=== PATIENT | female | born 1985 | race Caucasian/White ===

== ENCOUNTER 2017-07-10 20:27 | Inpatient (IN) | payer MEDICAID, OTHER ==
[2017-07-10] MEDS: NORepinephrine 8MG/250 ML (PMX 250 ML IV (21:14)
[2017-07-10] MEDS: ACETAMINOPHEN 650MG/20.3ML CUP GTB (21:14)
[2017-07-10] MEDS: PIPER-TAZO 3.375 GM IV (PMX) 50 ML IVPB (21:18)
[2017-07-10] MEDS: VANCOMYCIN 1 GM (PMX) 250 ML IVPB (21:18)
[2017-07-10 21:22] LABS: WHITE BLOOD COUNT 3.9 10^3/ul (4.8-10.8)
[2017-07-10 21:22] LABS: ABNORMAL IP MESSAGE 1; HEMATOCRIT 26.4 % (37.0-47.0); HEMOGLOBIN 8.7 g/dl (12.0-16.0); MEAN CORPUSCULAR HEMOGLOBIN 31.2 pg (29.0-33.0); MEAN CORPUSCULAR VOLUME 94.6 fl (82.0-101.0); MEAN PLATELET VOLUME 10.4 fl (7.4-10.4); PLATELET COUNT 304 10^3/UL (140-415); RED BLOOD COUNT 2.79 10^6/ul (4.20-5.40); RED CELL DISTRIBUTION WIDTH 15.6 % (11.5-14.5)
[2017-07-10 21:25] LABS: AADO2 Arterial 256.7 mmHg (7.0-24.0); Allen Test ACCEPTAB; Arterial Base Excess 0.4 mmol/L (-3.0-3); Arterial Blood Gas Oxygen Sat 92.4 mmHG (95.0-98.0); Arterial COHb 0.3 % (0.0-3.0); Arterial Fraction of Oxyhgb 91.8 % (93.0-99.0); Arterial HCO3 23.7 mmol/L (22.0-26.0); Arterial MetHb 0.4 % (0.0-1.5); Arterial Total Hemglobin 9.8 g/dl (12.0-18.0); Arterial pCO2 33.1 mmhg (35-45); Blood Gas Low PEEP Setting 0 cmH2O; MODE VENT - AC; Site Right Radial
[2017-07-10 21:28] LABS: ADD MAN DIFF? YES; POSITIVE DIFF @See below
[2017-07-10 21:40] LABS: ALANINE AMINOTRANSFERASE 86 IU/L (13-69); ALBUMIN 2.9 g/dl (3.3-4.9); ALBUMIN/GLOBULIN RATIO 1.03; ALKALINE PHOSPHATASE 190 IU/L (42-121); ANION GAP 13 (8-16); ASPARTATE AMINO TRANSFERASE 41 IU/L (15-46); BILIRUBIN,INDIRECT 0.1 mg/dl (0-1.1); BILIRUBIN,TOTAL 0.1 mg/dl (0.2-1.3); BLOOD UREA NITROGEN 11 mg/dl (7-20); CALCIUM 8.7 mg/dl (8.4-10.2); CARBON DIOXIDE 24 mmol/L (21-31); CHLORIDE 108 mmol/L (97-110); CREATININE 0.54 mg/dl (0.44-1.00); GLUCOSE 133 mg/dl (70-220); POTASSIUM 3.1 mmol/L (3.5-5.1); SODIUM 142 mmol/L (135-144); TOTAL PROTEIN 5.7 g/dl (6.1-8.1)
[2017-07-10 22:32] LABS: ANISOCYTOSIS 2+ (0-0); LYMPHOCYTES #M 1.3 10^3/ul (0.8-2.9); LYMPHOCYTES % (M) 35 % (15-51); MICROCYTOSIS 2+ (0-0); MONOCYTE #M 0.2 10^3/ul (0.3-0.9); MONOCYTES % (M) 6 % (0-11); PLATELET ESTIMATE NORMAL; POLYCHROMASIA 1+ (0-0); REACTIVE LYMPHOCYTES #M 0.1 10^3/ul (0.0-0.0); REACTIVE LYMPHOCYTES% (M) 3 % (0-0); SEGMENTED NEUTROPHILS (M) % 56 % (39-77); SMUDGE%M 12 % (0-0)
[2017-07-10] MEDS: SOD CHLORIDE 0.9% 1,000 ML IV (22:42)
[2017-07-10] MEDS: POTASSIUM CHLORIDE 20 MEQ POWDER FOR ORAL SOLN GTB (22:50)
[2017-07-11] MEDS: PIPER-TAZO 3.375 GM IV (PMX) 50 ML IVPB ×4 (02:40→18:06)
[2017-07-11] MEDS: ACETAMINOPHEN 650MG/20.3ML CUP GTB ×2 (02:40→17:05)
[2017-07-11] MEDS ORDERED: PENDING SANTYL ORDER FOR WOUND CARE XX (05:00)
[2017-07-11 05:42] LABS: ADD MAN DIFF? NO
[2017-07-11 06:13] LABS: ANION GAP 13 (8-16); BLOOD UREA NITROGEN 10 mg/dl (7-20); CALCIUM 8.9 mg/dl (8.4-10.2); CARBON DIOXIDE 20 mmol/L (21-31); CHLORIDE 114 mmol/L (97-110); CREATININE 0.36 mg/dl (0.44-1.00); GLUCOSE 138 mg/dl (70-220); POTASSIUM 4.1 mmol/L (3.5-5.1); SODIUM 143 mmol/L (135-144)
[2017-07-11 06:38] LABS: ABNORMAL IP MESSAGE 1; BASOPHILS % 0.4 % (0.0-2.0); EOSINOPHILS % 0.4 % (0.0-7.0); LYMPHOCYTES # 1.3 10^3/ul (0.8-2.9); LYMPHOCYTES % 11.7 % (15.0-51.0); MEAN CORPUSCULAR HGB CONC 33.3 g/dl (32.0-37.0); MEAN CORPUSCULAR VOLUME 93.1 fl (82.0-101.0); MEAN PLATELET VOLUME 11.3 fl (7.4-10.4); MONOCYTE # 0.4 10^3/ul (0.3-0.9); MONOCYTES % 3.4 % (0.0-11.0); NEUTROPHIL # 9.2 10^3/ul (1.6-7.5); NEUTROPHILS % 83.4 % (39.0-77.0); PLATELET COUNT 363 10^3/UL (140-415); RED BLOOD COUNT 2.16 10^6/ul (4.20-5.40)
[2017-07-11 06:38] LABS: WHITE BLOOD COUNT 11.1 10^3/ul (4.8-10.8)
[2017-07-11 06:41] LABS: PATH REVIEW? YES; POSITIVE DIFF @See below
[2017-07-11 06:54] LABS: HEMATOCRIT 26.4 % (37.0-47.0); HEMOGLOBIN 8.9 g/dl (12.0-16.0)
[2017-07-11] MEDS: SOD CHLORIDE 0.9% 1,000 ML IV ×2 (09:31→21:47)
[2017-07-11] MEDS: ENOXAPARIN 30 MG/0.3 ML SYG SC (12:09)
[2017-07-11] MEDS: DIGOXIN 500 MCG INJ IV (13:37)
[2017-07-11 14:37] LABS: Allen Test ACCEPTAB; Arterial Base Excess -1.5 mmol/L (-3.0-3); Arterial Blood Gas Oxygen Sat 98.3 mmHG (95.0-98.0); Arterial COHb 0.3 % (0.0-3.0); Arterial Fraction of Oxyhgb 97.7 % (93.0-99.0); Arterial HCO3 22.1 mmol/L (22.0-26.0); Arterial MetHb 0.3 % (0.0-1.5); Arterial Total Hemglobin 8.8 g/dl (12.0-18.0); Arterial pCO2 32.8 mmhg (35-45); MODE VENT - AC; Site Right Radial
[2017-07-11] MEDS: CASPOFUNGIN 70 MG in SOD CHLORIDE 0.9% 250 ML IVPB (16:46)
[2017-07-11] MEDS ORDERED: ONDANSETRON 4 MG INJ (18:21)
[2017-07-11] MEDS: morphine 2 MG INJ IV (18:30)
[2017-07-11] MEDS: ONDANSETRON 4 MG INJ IV (18:30)
[2017-07-11] MEDS: VANCOMYCIN 750 MG in DEXTROSE 5% 150 ML IVPB (20:38)
[2017-07-11] MEDS: ACETAMINOPHEN 650MG/20.3ML CUP NGT (20:38)
[2017-07-11] MEDS: FAMOTIDINE 20 MG TAB GTB (20:39)
[2017-07-11] MEDS: ATENOLOL 25 MG TAB PO (20:39)
[2017-07-11] MEDS ORDERED: ACETAMINOPHEN 650 MG SUPP PR (21:18)
[2017-07-11 21:26] LABS: LACTIC ACID 0.9 mmol/L (0.5-2.0)
[2017-07-11] MEDS: METOCLOPRAMIDE 10 MG INJ IV ×2 (21:47→22:00)
[2017-07-12] MEDS: ONDANSETRON 4 MG INJ IV (05:14)
[2017-07-12] MEDS: METOCLOPRAMIDE 10 MG INJ IV ×4 (05:14→23:56)
[2017-07-12] MEDS: PIPER-TAZO 3.375 GM IV (PMX) 50 ML IVPB ×5 (05:15→23:55)
[2017-07-12] MEDS: morphine 2 MG INJ IV ×3 (05:15→23:23)
[2017-07-12] MEDS: VANCOMYCIN 750 MG in DEXTROSE 5% 150 ML IVPB ×2 (05:48→18:35)
[2017-07-12] MEDS: ACETAMINOPHEN 325 MG SUPP PR (08:06)
[2017-07-12] MEDS: FAMOTIDINE 20 MG INJ IV (09:54)
[2017-07-12] MEDS: ENOXAPARIN 30 MG/0.3 ML SYG SC (09:56)
[2017-07-12 11:17] LABS: ADD MAN DIFF? NO
[2017-07-12 11:25] LABS: ABNORMAL IP MESSAGE 1; BASOPHILS % 0.1 % (0.0-2.0); EOSINOPHILS # 0.1 10^3/ul (0.0-0.5); EOSINOPHILS % 0.3 % (0.0-7.0); HEMATOCRIT 21.9 % (37.0-47.0); HEMOGLOBIN 7.3 g/dl (12.0-16.0); LYMPHOCYTES # 1.4 10^3/ul (0.8-2.9); LYMPHOCYTES % 8.9 % (15.0-51.0); MEAN CORPUSCULAR HEMOGLOBIN 31.7 pg (29.0-33.0); MEAN CORPUSCULAR HGB CONC 33.3 g/dl (32.0-37.0); MEAN CORPUSCULAR VOLUME 95.2 fl (82.0-101.0); MEAN PLATELET VOLUME 10.4 fl (7.4-10.4); MONOCYTE # 0.6 10^3/ul (0.3-0.9); MONOCYTES % 3.9 % (0.0-11.0); NEUTROPHIL # 13.7 10^3/ul (1.6-7.5); NEUTROPHILS % 85.5 % (39.0-77.0); PLATELET COUNT 291 10^3/UL (140-415); RED CELL DISTRIBUTION WIDTH 16.3 % (11.5-14.5)
[2017-07-12 11:25] LABS: WHITE BLOOD COUNT 16.1 10^3/ul (4.8-10.8)
[2017-07-12 11:30] LABS: POSITIVE DIFF @See below
[2017-07-12] MEDS: SOD CHLORIDE 0.9% 1,000 ML IV ×2 (12:00→18:35)
[2017-07-12 13:46] LABS: ADD UMIC YES; UR ASCORBIC ACID NEGATIVE (NEGATIVE); UR BACTERIA FEW /HPF (NONE SEEN); UR BILIRUBIN (Dip) NEGATIVE (NEGATIVE); UR BLOOD (Dip) NEGATIVE (NEGATIVE); UR CLARITY SLIGHTLY CLOUDY (CLEAR); UR COLOR YELLOW (YELLOW); UR GLUCOSE (Dip) NEGATIVE (NEGATIVE); UR KETONES (Dip) 1+ mg/dL (NEGATIVE); UR LEUKOCYTE ESTERASE (Dip) NEGATIVE Leu/ul (NEGATIVE); UR NITRITE (Dip) NEGATIVE (NEGATIVE); UR RBC 7 /HPF (0-5); UR SPECIFIC GRAVITY (Dip) 1.016 (1.003-1.030); UR TOTAL PROTEIN (Dip) 1+ mg/dl (NEGATIVE); UR UROBILINOGEN (Dip) NEGATIVE (NEGATIVE); UR WBC 3 /HPF (0-5)
[2017-07-12] MEDS: CASPOFUNGIN 50 MG in SOD CHLORIDE 0.9% 250 ML IVPB (16:31)
[2017-07-12] MEDS: ACETAMINOPHEN 650MG/20.3ML CUP NGT (16:36)
[2017-07-13] MEDS: SOD CHLORIDE 0.9% 1,000 ML IV ×3 (00:30→12:14)
[2017-07-13] MEDS: ACETAMINOPHEN 325 MG SUPP PR (05:05)
[2017-07-13] MEDS: METOCLOPRAMIDE 10 MG INJ IV ×4 (05:26→23:47)
[2017-07-13] MEDS: PIPER-TAZO 3.375 GM IV (PMX) 50 ML IVPB ×4 (05:26→23:47)
[2017-07-13] MEDS: VANCOMYCIN 750 MG in DEXTROSE 5% 150 ML IVPB ×2 (06:20→16:01)
[2017-07-13] MEDS: FAMOTIDINE 20 MG INJ IV (09:03)
[2017-07-13] MEDS: ENOXAPARIN 30 MG/0.3 ML SYG SC (09:12)
[2017-07-13 09:18] LABS: AADO2 Arterial 92.2 mmHg (7.0-24.0); Allen Test ACCEPTAB; Arterial Base Excess -1.1 mmol/L (-3.0-3); Arterial Blood Gas Oxygen Sat 98.8 mmHG (95.0-98.0); Arterial COHb 0.3 % (0.0-3.0); Arterial Fraction of Oxyhgb 98.1 % (93.0-99.0); Arterial HCO3 21.7 mmol/L (22.0-26.0); Arterial MetHb 0.4 % (0.0-1.5); Arterial Total Hemglobin 7.6 g/dl (12.0-18.0); Arterial pCO2 28.5 mmhg (35-45); Blood Gas Low PEEP Setting 0 cmH2O; MODE VENT - AC; Site Right Radial
[2017-07-13] MEDS: ONDANSETRON 4 MG INJ IV (13:46)
[2017-07-13 16:47] LABS: LACTIC ACID 1.1 mmol/L (0.5-2.0)
[2017-07-13] MEDS: CASPOFUNGIN 50 MG in SOD CHLORIDE 0.9% 250 ML IVPB (17:01)
[2017-07-13] MEDS: morphine 2 MG INJ IV (20:22)
[2017-07-13] MEDS: ATENOLOL 25 MG TAB PO (20:26)
[2017-07-13] MEDS: ACETAMINOPHEN 650MG/20.3ML CUP NGT (23:48)
[2017-07-14] MEDS: morphine 2 MG INJ IV ×2 (01:33→19:34)
[2017-07-14] MEDS: ACETAMINOPHEN 325 MG SUPP PR (02:16)
[2017-07-14] MEDS: SOD CHLORIDE 0.9% 1,000 ML IV ×3 (04:02→16:16)
[2017-07-14 05:23] LABS: WHITE BLOOD COUNT 13.3 10^3/ul (4.8-10.8)
[2017-07-14 05:23] LABS: HEMATOCRIT 21.7 % (37.0-47.0); HEMOGLOBIN 7.2 g/dl (12.0-16.0); MEAN CORPUSCULAR HEMOGLOBIN 30.8 pg (29.0-33.0); MEAN CORPUSCULAR HGB CONC 33.2 g/dl (32.0-37.0); MEAN CORPUSCULAR VOLUME 92.7 fl (82.0-101.0); MEAN PLATELET VOLUME 10.5 fl (7.4-10.4); PLATELET COUNT 293 10^3/UL (140-415); RED BLOOD COUNT 2.34 10^6/ul (4.20-5.40); RED CELL DISTRIBUTION WIDTH 15.2 % (11.5-14.5)
[2017-07-14 05:47] LABS: ANION GAP 15 (8-16); BLOOD UREA NITROGEN 3 mg/dl (7-20); CALCIUM 8.1 mg/dl (8.4-10.2); CARBON DIOXIDE 29 mmol/L (21-31); CHLORIDE 101 mmol/L (97-110); CREATININE 0.31 mg/dl (0.44-1.00); GLUCOSE 113 mg/dl (70-220); SODIUM 143 mmol/L (135-144)
[2017-07-14] MEDS: METOCLOPRAMIDE 10 MG INJ IV ×3 (05:50→17:05)
[2017-07-14] MEDS: PIPER-TAZO 3.375 GM IV (PMX) 50 ML IVPB ×3 (05:50→18:58)
[2017-07-14 06:01] LABS: POTASSIUM 1.9 mmol/L (3.5-5.1)
[2017-07-14] MEDS ORDERED: VANCOMYCIN 750 MG in DEXTROSE 5% 150 ML IVPB (06:30)
[2017-07-14] MEDS: VANCOMYCIN 750 MG in DEXTROSE 5% 150 ML IVPB ×3 (06:41→22:24)
[2017-07-14 06:49] LABS: ADD MAN DIFF? YES; POSITIVE DIFF @See below
[2017-07-14] MEDS: POTASSIUM CHLORIDE 50 ML IVPB ×4 (06:59→11:50)
[2017-07-14 08:35] LABS: ANION GAP 12 (8-16); BLOOD UREA NITROGEN 2 mg/dl (7-20); CALCIUM 7.8 mg/dl (8.4-10.2); CARBON DIOXIDE 29 mmol/L (21-31); CHLORIDE 101 mmol/L (97-110); CREATININE 0.35 mg/dl (0.44-1.00); GLUCOSE 112 mg/dl (70-220); MAGNESIUM 1.2 mg/dl (1.7-2.5); SODIUM 140 mmol/L (135-144)
[2017-07-14 08:37] LABS: POTASSIUM 1.8 mmol/L (3.5-5.1)
[2017-07-14] MEDS: FAMOTIDINE 20 MG INJ IV (09:06)
[2017-07-14] MEDS: ATENOLOL 25 MG TAB PO ×2 (09:07→20:40)
[2017-07-14] MEDS: ENOXAPARIN 30 MG/0.3 ML SYG SC (09:27)
[2017-07-14] MEDS: ACETAMINOPHEN 650MG/20.3ML CUP NGT ×2 (10:12→16:42)
[2017-07-14 10:27] LABS: ANISOCYTOSIS 1+ (0-0); BAND NEUTROPHILS #M 0.2 10^3/ul (0.0-0.6); BAND NEUTROPHILS % (M) 2 % (0-4); LYMPHOCYTES #M 1.5 10^3/ul (0.8-2.9); LYMPHOCYTES % (M) 12 % (15-51); MONOCYTE #M 0.5 10^3/ul (0.3-0.9); MONOCYTES % (M) 4 % (0-11); PLATELET ESTIMATE NORMAL; POLYCHROMASIA 1+ (0-0); SEG NEUT #M 10.9 10^3/ul (1.7-7.5); SEGMENTED NEUTROPHILS (M) % 82 % (39-77); SMUDGE%M 1 % (0-0)
[2017-07-14] MEDS: MAGNESIUM SULFATE 4 GM/100 ML 100 ML IVPB (11:50)
[2017-07-14] MEDS: POTASSIUM CHLORIDE 20 MEQ POWDER FOR ORAL SOLN NGT (11:54)
[2017-07-14 16:29] LABS: IMMEDIATE SPIN CROSSMATCH 1 1
[2017-07-14] MEDS: CASPOFUNGIN 50 MG in SOD CHLORIDE 0.9% 250 ML IVPB (17:05)
[2017-07-14] MEDS: POTASSIUM CHLORIDE 20 MEQ POWDER FOR ORAL SOLN GTB (17:05)
[2017-07-14 21:22] LABS: ANION GAP 13 (8-16); BLOOD UREA NITROGEN 4 mg/dl (7-20); CALCIUM 7.8 mg/dl (8.4-10.2); CARBON DIOXIDE 29 mmol/L (21-31); CHLORIDE 104 mmol/L (97-110); CREATININE 0.33 mg/dl (0.44-1.00); GLUCOSE 147 mg/dl (70-220); POTASSIUM 3.4 mmol/L (3.5-5.1); SODIUM 143 mmol/L (135-144)
[2017-07-15] MEDS: POTASSIUM CHLORIDE 20 MEQ POWDER FOR ORAL SOLN GTB (00:45)
[2017-07-15] MEDS: METOCLOPRAMIDE 10 MG INJ IV ×4 (00:50→17:18)
[2017-07-15] MEDS: PIPER-TAZO 3.375 GM IV (PMX) 50 ML IVPB ×4 (00:51→17:19)
[2017-07-15] MEDS: ACETAMINOPHEN 650MG/20.3ML CUP NGT ×2 (00:51→08:53)
[2017-07-15] MEDS: SOD CHLORIDE 0.9% 1,000 ML IV ×3 (02:40→22:30)
[2017-07-15 07:03] LABS: ADD MAN DIFF? NO
[2017-07-15 07:09] LABS: WHITE BLOOD COUNT 13.2 10^3/ul (4.8-10.8)
[2017-07-15 07:09] LABS: BASOPHILS % 0.2 % (0.0-2.0); EOSINOPHILS # 0.1 10^3/ul (0.0-0.5); HEMATOCRIT 25.4 % (37.0-47.0); HEMOGLOBIN 8.5 g/dl (12.0-16.0); LYMPHOCYTES # 2.1 10^3/ul (0.8-2.9); LYMPHOCYTES % 15.8 % (15.0-51.0); MEAN CORPUSCULAR HEMOGLOBIN 29.9 pg (29.0-33.0); MEAN CORPUSCULAR HGB CONC 33.5 g/dl (32.0-37.0); MEAN CORPUSCULAR VOLUME 89.4 fl (82.0-101.0); MONOCYTE # 0.9 10^3/ul (0.3-0.9); MONOCYTES % 6.5 % (0.0-11.0); NEUTROPHIL # 9.8 10^3/ul (1.6-7.5); NEUTROPHILS % 74.1 % (39.0-77.0); PLATELET COUNT 309 10^3/UL (140-415); RED BLOOD COUNT 2.84 10^6/ul (4.20-5.40); RED CELL DISTRIBUTION WIDTH 17.1 % (11.5-14.5)
[2017-07-15] MEDS: VANCOMYCIN 750 MG in DEXTROSE 5% 150 ML IVPB ×2 (07:37→14:40)
[2017-07-15 07:40] LABS: MAGNESIUM 2.1 mg/dl (1.7-2.5)
[2017-07-15 08:00] LABS: ANION GAP 12 (8-16); BLOOD UREA NITROGEN 5 mg/dl (7-20); CARBON DIOXIDE 28 mmol/L (21-31); CHLORIDE 106 mmol/L (97-110); CREATININE 0.34 mg/dl (0.44-1.00); GLUCOSE 104 mg/dl (70-220); POTASSIUM 3.6 mmol/L (3.5-5.1); SODIUM 142 mmol/L (135-144)
[2017-07-15 08:07] LABS: VANCOMYCIN,TROUGH 13.4 ug/ml (10.0-20.0)
[2017-07-15] MEDS: FAMOTIDINE 20 MG INJ IV (08:52)
[2017-07-15] MEDS: ATENOLOL 25 MG TAB PO ×2 (08:53→22:02)
[2017-07-15] MEDS: COLLAGENASE 30 GM TUBE TOP (08:54)
[2017-07-15] MEDS: ENOXAPARIN 30 MG/0.3 ML SYG SC (08:59)
[2017-07-15] MEDS: CASPOFUNGIN 50 MG in SOD CHLORIDE 0.9% 250 ML IVPB (16:39)
[2017-07-16] MEDS: PIPER-TAZO 3.375 GM IV (PMX) 50 ML IVPB ×4 (00:29→17:39)
[2017-07-16] MEDS: METOCLOPRAMIDE 10 MG INJ IV ×4 (00:29→17:39)
[2017-07-16] MEDS: ACETAMINOPHEN 650MG/20.3ML CUP NGT ×3 (00:38→14:54)
[2017-07-16] MEDS: morphine 2 MG INJ IV ×2 (05:28→21:19)
[2017-07-16] MEDS: SOD CHLORIDE 0.9% 1,000 ML IV ×3 (05:33→17:41)
[2017-07-16] MEDS: FAMOTIDINE 20 MG INJ IV (08:46)
[2017-07-16] MEDS: ATENOLOL 25 MG TAB PO ×2 (08:46→20:39)
[2017-07-16] MEDS: COLLAGENASE 30 GM TUBE TOP (08:47)
[2017-07-16 08:57] LABS: ADD MAN DIFF? NO
[2017-07-16] MEDS: ENOXAPARIN 30 MG/0.3 ML SYG SC (08:59)
[2017-07-16 09:14] LABS: BASOPHILS % 0.3 % (0.0-2.0); EOSINOPHILS # 0.1 10^3/ul (0.0-0.5); EOSINOPHILS % 0.8 % (0.0-7.0); HEMATOCRIT 27.1 % (37.0-47.0); HEMOGLOBIN 8.9 g/dl (12.0-16.0); LYMPHOCYTES # 1.7 10^3/ul (0.8-2.9); LYMPHOCYTES % 12.7 % (15.0-51.0); MEAN CORPUSCULAR HEMOGLOBIN 29.9 pg (29.0-33.0); MEAN CORPUSCULAR HGB CONC 32.8 g/dl (32.0-37.0); MEAN CORPUSCULAR VOLUME 90.9 fl (82.0-101.0); MEAN PLATELET VOLUME 10.6 fl (7.4-10.4); MONOCYTE # 0.8 10^3/ul (0.3-0.9); MONOCYTES % 5.6 % (0.0-11.0); NEUTROPHIL # 10.6 10^3/ul (1.6-7.5); NEUTROPHILS % 77.1 % (39.0-77.0); PLATELET COUNT 354 10^3/UL (140-415); RED BLOOD COUNT 2.98 10^6/ul (4.20-5.40); RED CELL DISTRIBUTION WIDTH 16.6 % (11.5-14.5)
[2017-07-16 09:14] LABS: WHITE BLOOD COUNT 13.7 10^3/ul (4.8-10.8)
[2017-07-16 09:37] LABS: ANION GAP 13 (8-16); BLOOD UREA NITROGEN 4 mg/dl (7-20); CALCIUM 8.3 mg/dl (8.4-10.2); CARBON DIOXIDE 27 mmol/L (21-31); CHLORIDE 104 mmol/L (97-110); CREATININE 0.32 mg/dl (0.44-1.00); GLUCOSE 104 mg/dl (70-220); SODIUM 141 mmol/L (135-144)
[2017-07-16 10:10] LABS: POTASSIUM 2.8 mmol/L (3.5-5.1)
[2017-07-16] MEDS: POTASSIUM CHLORIDE (SR) 20 MEQ TAB PO (12:00)
[2017-07-16] MEDS: POTASSIUM CHLORIDE 50 ML IVPB ×4 (12:00→14:54)
[2017-07-16 18:14] LABS: ANION GAP 15 (8-16); BLOOD UREA NITROGEN 4 mg/dl (7-20); CALCIUM 8.7 mg/dl (8.4-10.2); CARBON DIOXIDE 27 mmol/L (21-31); CHLORIDE 104 mmol/L (97-110); CREATININE 0.38 mg/dl (0.44-1.00); GLUCOSE 96 mg/dl (70-220); POTASSIUM 4.5 mmol/L (3.5-5.1); SODIUM 141 mmol/L (135-144)
[2017-07-17] MEDS: PIPER-TAZO 3.375 GM IV (PMX) 50 ML IVPB ×4 (00:41→17:40)
[2017-07-17] MEDS: METOCLOPRAMIDE 10 MG INJ IV ×4 (00:41→17:41)
[2017-07-17] MEDS: SOD CHLORIDE 0.9% 1,000 ML IV ×3 (05:23→17:40)
[2017-07-17 06:21] LABS: PROCALCITONIN 3.57 ng/mL (<0.10)
[2017-07-17 08:12] LABS: ADD MAN DIFF? NO
[2017-07-17 08:16] LABS: WHITE BLOOD COUNT 13.3 10^3/ul (4.8-10.8)
[2017-07-17 08:16] LABS: BASOPHILS % 0.3 % (0.0-2.0); EOSINOPHILS # 0.2 10^3/ul (0.0-0.5); EOSINOPHILS % 1.3 % (0.0-7.0); HEMATOCRIT 28.6 % (37.0-47.0); HEMOGLOBIN 9.7 g/dl (12.0-16.0); LYMPHOCYTES # 1.7 10^3/ul (0.8-2.9); LYMPHOCYTES % 12.6 % (15.0-51.0); MEAN CORPUSCULAR HEMOGLOBIN 30.8 pg (29.0-33.0); MEAN CORPUSCULAR HGB CONC 33.9 g/dl (32.0-37.0); MEAN CORPUSCULAR VOLUME 90.8 fl (82.0-101.0); MEAN PLATELET VOLUME 10.3 fl (7.4-10.4); MONOCYTE # 0.9 10^3/ul (0.3-0.9); NEUTROPHIL # 9.9 10^3/ul (1.6-7.5); NEUTROPHILS % 74.5 % (39.0-77.0); PLATELET COUNT 405 10^3/UL (140-415); RED BLOOD COUNT 3.15 10^6/ul (4.20-5.40); RED CELL DISTRIBUTION WIDTH 16.3 % (11.5-14.5)
[2017-07-17 08:48] LABS: ANION GAP 18 (8-16); BLOOD UREA NITROGEN 5 mg/dl (7-20); CALCIUM 9.2 mg/dl (8.4-10.2); CARBON DIOXIDE 25 mmol/L (21-31); CHLORIDE 104 mmol/L (97-110); CREATININE 0.33 mg/dl (0.44-1.00); GLUCOSE 102 mg/dl (70-220); POTASSIUM 3.6 mmol/L (3.5-5.1); SODIUM 143 mmol/L (135-144)
[2017-07-17] MEDS: BENAZEPRIL 10 MG TAB PO (10:02)
[2017-07-17] MEDS: COLLAGENASE 30 GM TUBE TOP (10:02)
[2017-07-17] MEDS: ATENOLOL 25 MG TAB PO ×2 (10:02→22:42)
[2017-07-17] MEDS: FAMOTIDINE 20 MG INJ IV (10:02)
[2017-07-17] MEDS: ENOXAPARIN 30 MG/0.3 ML SYG SC (10:15)
[2017-07-17] MEDS ORDERED: VANCOMYCIN IV PER PHARMACY XX (21:30)
[2017-07-17] MEDS: VANCOMYCIN 1 GM in SOD CHLORIDE 0.45% 250 ML IVPB (22:42)
[2017-07-17] MEDS: CASPOFUNGIN 70 MG in SOD CHLORIDE 0.9% 250 ML IVPB (22:42)
[2017-07-17] MEDS: metroNIDAZOLE 500 MG/NS (PMX) 100 ML IVPB (22:43)
[2017-07-18] MEDS: SOD CHLORIDE 0.9% 1,000 ML IV ×3 (00:30→18:19)
[2017-07-18] MEDS: METOCLOPRAMIDE 10 MG INJ IV ×5 (00:48→23:04)
[2017-07-18] MEDS: VANCOMYCIN 750 MG in DEXTROSE 5% 150 ML IVPB ×3 (06:16→23:04)
[2017-07-18] MEDS: metroNIDAZOLE 500 MG/NS (PMX) 100 ML IVPB ×3 (06:16→23:04)
[2017-07-18] MEDS: CEFEPIME 2GM/50 ML (PMX) 50 ML IVPB ×2 (09:00→20:19)
[2017-07-18] MEDS: FAMOTIDINE 20 MG INJ IV (09:00)
[2017-07-18] MEDS: COLLAGENASE 30 GM TUBE TOP (09:00)
[2017-07-18] MEDS: BENAZEPRIL 10 MG TAB PO (09:36)
[2017-07-18] MEDS: ATENOLOL 25 MG TAB PO ×2 (09:37→20:20)
[2017-07-18] MEDS: ENOXAPARIN 30 MG/0.3 ML SYG SC (09:45)
[2017-07-18] MEDS: LIDOCAINE 1% (MPF) 5 ML VIAL SC (15:50)
[2017-07-18] MEDS: CASPOFUNGIN 50 MG in SOD CHLORIDE 0.9% 250 ML IVPB (21:42)
[2017-07-19] MEDS: morphine 2 MG INJ IV (04:05)
[2017-07-19] MEDS: METOCLOPRAMIDE 10 MG INJ IV ×4 (05:14→23:02)
[2017-07-19] MEDS: metroNIDAZOLE 500 MG/NS (PMX) 100 ML IVPB ×4 (05:14→22:03)
[2017-07-19] MEDS: SOD CHLORIDE 0.9% 1,000 ML IV ×3 (06:07→20:20)
[2017-07-19] MEDS: VANCOMYCIN 750 MG in DEXTROSE 5% 150 ML IVPB ×3 (06:09→22:58)
[2017-07-19 09:12] LABS: ADD MAN DIFF? NO
[2017-07-19] MEDS: ACETAMINOPHEN 650MG/20.3ML CUP NGT (09:13)
[2017-07-19] MEDS: FAMOTIDINE 20 MG INJ IV (09:13)
[2017-07-19] MEDS: COLLAGENASE 30 GM TUBE TOP (09:13)
[2017-07-19] MEDS: CEFEPIME 2GM/50 ML (PMX) 50 ML IVPB ×2 (09:13→20:12)
[2017-07-19] MEDS: ATENOLOL 25 MG TAB PO ×2 (09:14→20:12)
[2017-07-19] MEDS: BENAZEPRIL 10 MG TAB PO (09:14)
[2017-07-19 09:15] LABS: BASOPHILS % 0.3 % (0.0-2.0); EOSINOPHILS # 0.1 10^3/ul (0.0-0.5); HEMATOCRIT 25.6 % (37.0-47.0); HEMOGLOBIN 8.3 g/dl (12.0-16.0); LYMPHOCYTES # 1.5 10^3/ul (0.8-2.9); LYMPHOCYTES % 12.3 % (15.0-51.0); MEAN CORPUSCULAR HEMOGLOBIN 30.5 pg (29.0-33.0); MEAN CORPUSCULAR HGB CONC 32.4 g/dl (32.0-37.0); MEAN CORPUSCULAR VOLUME 94.1 fl (82.0-101.0); MEAN PLATELET VOLUME 9.9 fl (7.4-10.4); MONOCYTE # 0.9 10^3/ul (0.3-0.9); MONOCYTES % 7.6 % (0.0-11.0); NEUTROPHILS % 76.2 % (39.0-77.0); PLATELET COUNT 410 10^3/UL (140-415); RED BLOOD COUNT 2.72 10^6/ul (4.20-5.40); RED CELL DISTRIBUTION WIDTH 16.1 % (11.5-14.5)
[2017-07-19 09:15] LABS: WHITE BLOOD COUNT 11.8 10^3/ul (4.8-10.8)
[2017-07-19 09:37] LABS: ANION GAP 14 (8-16); BLOOD UREA NITROGEN 5 mg/dl (7-20); CALCIUM 8.3 mg/dl (8.4-10.2); CARBON DIOXIDE 25 mmol/L (21-31); CHLORIDE 99 mmol/L (97-110); CREATININE 0.33 mg/dl (0.44-1.00); GLUCOSE 262 mg/dl (70-220); POTASSIUM 3.4 mmol/L (3.5-5.1); SODIUM 135 mmol/L (135-144)
[2017-07-19] MEDS: ENOXAPARIN 30 MG/0.3 ML SYG SC (09:58)
[2017-07-19 13:27] LABS: PROCALCITONIN 0.73 ng/mL (<0.10)
[2017-07-19 16:35] LABS: ADD UMIC YES; UR ASCORBIC ACID NEGATIVE (NEGATIVE); UR BILIRUBIN (Dip) NEGATIVE (NEGATIVE); UR BLOOD (Dip) NEGATIVE (NEGATIVE); UR CLARITY CLEAR (CLEAR); UR COLOR YELLOW (YELLOW); UR GLUCOSE (Dip) NEGATIVE (NEGATIVE); UR KETONES (Dip) NEGATIVE (NEGATIVE); UR LEUKOCYTE ESTERASE (Dip) TRACE Leu/ul (NEGATIVE); UR MUCUS FEW /HPF (NONE SEEN); UR NITRITE (Dip) NEGATIVE (NEGATIVE); UR RBC 1 /HPF (0-5); UR SPECIFIC GRAVITY (Dip) 1.014 (1.003-1.030); UR TOTAL PROTEIN (Dip) NEGATIVE (NEGATIVE); UR UROBILINOGEN (Dip) NEGATIVE (NEGATIVE); UR WBC 7 /HPF (0-5)
[2017-07-19] MEDS: CASPOFUNGIN 50 MG in SOD CHLORIDE 0.9% 250 ML IVPB (21:15)
[2017-07-19 21:43] LABS: VANCOMYCIN,TROUGH 7.8 ug/ml (10.0-20.0)
[2017-07-20] MEDS: SOD CHLORIDE 0.9% 1,000 ML IV ×3 (01:31→22:02)
[2017-07-20] MEDS: metroNIDAZOLE 500 MG/NS (PMX) 100 ML IVPB ×3 (05:04→22:02)
[2017-07-20] MEDS: METOCLOPRAMIDE 10 MG INJ IV ×4 (05:05→23:24)
[2017-07-20] MEDS: VANCOMYCIN 750 MG in DEXTROSE 5% 150 ML IVPB (05:59)
[2017-07-20 08:21] LABS: ADD MAN DIFF? NO
[2017-07-20 08:26] LABS: WHITE BLOOD COUNT 13.1 10^3/ul (4.8-10.8)
[2017-07-20 08:26] LABS: BASOPHILS % 0.3 % (0.0-2.0); EOSINOPHILS # 0.1 10^3/ul (0.0-0.5); EOSINOPHILS % 0.7 % (0.0-7.0); HEMATOCRIT 26.5 % (37.0-47.0); HEMOGLOBIN 8.7 g/dl (12.0-16.0); LYMPHOCYTES # 1.4 10^3/ul (0.8-2.9); LYMPHOCYTES % 10.4 % (15.0-51.0); MEAN CORPUSCULAR HEMOGLOBIN 30.7 pg (29.0-33.0); MEAN CORPUSCULAR HGB CONC 32.8 g/dl (32.0-37.0); MEAN CORPUSCULAR VOLUME 93.6 fl (82.0-101.0); MEAN PLATELET VOLUME 9.9 fl (7.4-10.4); MONOCYTE # 0.9 10^3/ul (0.3-0.9); MONOCYTES % 6.7 % (0.0-11.0); NEUTROPHIL # 10.5 10^3/ul (1.6-7.5); NEUTROPHILS % 80.1 % (39.0-77.0); PLATELET COUNT 473 10^3/UL (140-415); RED BLOOD COUNT 2.83 10^6/ul (4.20-5.40); RED CELL DISTRIBUTION WIDTH 15.9 % (11.5-14.5)
[2017-07-20 08:49] LABS: ANION GAP 13 (8-16); BLOOD UREA NITROGEN 6 mg/dl (7-20); CALCIUM 8.5 mg/dl (8.4-10.2); CARBON DIOXIDE 27 mmol/L (21-31); CHLORIDE 98 mmol/L (97-110); CREATININE 0.31 mg/dl (0.44-1.00); GLUCOSE 321 mg/dl (70-220); POTASSIUM 3.1 mmol/L (3.5-5.1); SODIUM 135 mmol/L (135-144)
[2017-07-20] MEDS: CEFEPIME 2GM/50 ML (PMX) 50 ML IVPB ×2 (09:37→20:21)
[2017-07-20] MEDS: FAMOTIDINE 20 MG INJ IV (09:38)
[2017-07-20] MEDS: BENAZEPRIL 10 MG TAB PO (09:38)
[2017-07-20] MEDS: COLLAGENASE 30 GM TUBE TOP (09:40)
[2017-07-20] MEDS: ATENOLOL 25 MG TAB PO ×2 (09:40→20:26)
[2017-07-20] MEDS: ENOXAPARIN 30 MG/0.3 ML SYG SC (09:54)
[2017-07-20] MEDS: ACETAMINOPHEN 650MG/20.3ML CUP NGT (11:28)
[2017-07-20] MEDS: POTASSIUM CHLORIDE 20 MEQ POWDER FOR ORAL SOLN GTB (13:10)
[2017-07-20] MEDS: VANCOMYCIN 1 GM 250 ML IVPB ×2 (16:37→22:53)
[2017-07-20] MEDS: CASPOFUNGIN 50 MG in SOD CHLORIDE 0.9% 250 ML IVPB (20:49)
[2017-07-21] MEDS: METOCLOPRAMIDE 10 MG INJ IV ×4 (05:08→22:51)
[2017-07-21] MEDS: metroNIDAZOLE 500 MG/NS (PMX) 100 ML IVPB ×3 (05:08→22:51)
[2017-07-21] MEDS: VANCOMYCIN 1 GM 250 ML IVPB ×2 (06:02→14:00)
[2017-07-21 06:54] LABS: ADD MAN DIFF? NO
[2017-07-21 07:00] LABS: BASOPHILS % 0.3 % (0.0-2.0); EOSINOPHILS # 0.1 10^3/ul (0.0-0.5); EOSINOPHILS % 1.3 % (0.0-7.0); HEMATOCRIT 30.6 % (37.0-47.0); LYMPHOCYTES # 1.4 10^3/ul (0.8-2.9); LYMPHOCYTES % 13.4 % (15.0-51.0); MEAN CORPUSCULAR HEMOGLOBIN 30.7 pg (29.0-33.0); MEAN CORPUSCULAR HGB CONC 32.7 g/dl (32.0-37.0); MEAN CORPUSCULAR VOLUME 93.9 fl (82.0-101.0); MEAN PLATELET VOLUME 9.8 fl (7.4-10.4); MONOCYTE # 0.8 10^3/ul (0.3-0.9); MONOCYTES % 7.8 % (0.0-11.0); NEUTROPHIL # 7.8 10^3/ul (1.6-7.5); PLATELET COUNT 462 10^3/UL (140-415); RED BLOOD COUNT 3.26 10^6/ul (4.20-5.40); RED CELL DISTRIBUTION WIDTH 15.9 % (11.5-14.5)
[2017-07-21 07:00] LABS: WHITE BLOOD COUNT 10.2 10^3/ul (4.8-10.8)
[2017-07-21 07:31] LABS: ANION GAP 16 (8-16); BLOOD UREA NITROGEN 7 mg/dl (7-20); CALCIUM 8.7 mg/dl (8.4-10.2); CARBON DIOXIDE 26 mmol/L (21-31); CHLORIDE 105 mmol/L (97-110); CREATININE 0.31 mg/dl (0.44-1.00); GLUCOSE 106 mg/dl (70-220); POTASSIUM 3.5 mmol/L (3.5-5.1); SODIUM 143 mmol/L (135-144)
[2017-07-21] MEDS: SOD CHLORIDE 0.9% 1,000 ML IV ×2 (08:30→15:59)
[2017-07-21] MEDS: FAMOTIDINE 20 MG INJ IV (09:04)
[2017-07-21] MEDS: ATENOLOL 25 MG TAB PO ×2 (09:04→20:32)
[2017-07-21] MEDS: CEFEPIME 2GM/50 ML (PMX) 50 ML IVPB ×2 (09:04→20:32)
[2017-07-21] MEDS: BENAZEPRIL 10 MG TAB PO (09:04)
[2017-07-21] MEDS: COLLAGENASE 30 GM TUBE TOP (09:16)
[2017-07-21] MEDS: ENOXAPARIN 30 MG/0.3 ML SYG SC (09:16)
[2017-07-21 14:01] LABS: VANCOMYCIN,TROUGH 19.2 ug/ml (10.0-20.0)
[2017-07-21] MEDS: DEXTROSE 5% IVPB (17:09)
[2017-07-21] MEDS: VANCOMYCIN IVPB (17:09)
[2017-07-21] MEDS: CASPOFUNGIN 50 MG in SOD CHLORIDE 0.9% 250 ML IVPB (22:02)
[2017-07-22] MEDS: DEXTROSE 5% IVPB ×2 (01:10→09:40)
[2017-07-22] MEDS: VANCOMYCIN IVPB ×3 (01:10→17:05)
[2017-07-22] MEDS: COLLAGENASE 30 GM TUBE TOP ×3 (04:00→09:00)
[2017-07-22] MEDS: SOD CHLORIDE 0.9% 1,000 ML IV ×2 (05:34→14:16)
[2017-07-22] MEDS: metroNIDAZOLE 500 MG/NS (PMX) 100 ML IVPB ×3 (05:47→22:47)
[2017-07-22] MEDS: METOCLOPRAMIDE 10 MG INJ IV ×4 (05:47→23:05)
[2017-07-22] MEDS: ATENOLOL 25 MG TAB PO ×2 (08:49→20:00)
[2017-07-22] MEDS: BENAZEPRIL 10 MG TAB PO (08:49)
[2017-07-22] MEDS: FAMOTIDINE 20 MG INJ IV (08:50)
[2017-07-22] MEDS: CEFEPIME 2GM/50 ML (PMX) 50 ML IVPB ×2 (08:50→19:59)
[2017-07-22] MEDS: ENOXAPARIN 30 MG/0.3 ML SYG SC (08:56)
[2017-07-22] MEDS: SOD CHLORIDE 0.45% IVPB (17:05)
[2017-07-22] MEDS: CASPOFUNGIN 50 MG in SOD CHLORIDE 0.9% 250 ML IVPB (21:05)
[2017-07-22] MEDS: morphine 2 MG INJ IV (23:05)
[2017-07-23] MEDS: VANCOMYCIN IVPB (01:00)
[2017-07-23] MEDS: SOD CHLORIDE 0.45% IVPB (01:00)
[2017-07-23] MEDS: SOD CHLORIDE 0.9% 1,000 ML IV ×3 (01:28→20:37)
[2017-07-23 01:33] LABS: VANCOMYCIN,TROUGH 18.2 ug/ml (10.0-20.0)
[2017-07-23] MEDS: VANCOMYCIN 750 MG in DEXTROSE 5% 150 ML IVPB ×3 (03:22→18:18)
[2017-07-23] MEDS: metroNIDAZOLE 500 MG/NS (PMX) 100 ML IVPB ×3 (05:17→21:28)
[2017-07-23] MEDS: METOCLOPRAMIDE 10 MG INJ IV ×4 (06:00→21:29)
[2017-07-23] MEDS: CEFEPIME 2GM/50 ML (PMX) 50 ML IVPB ×2 (10:02→21:28)
[2017-07-23] MEDS: FAMOTIDINE 20 MG INJ IV (10:02)
[2017-07-23] MEDS: ATENOLOL 25 MG TAB PO ×2 (10:03→21:00)
[2017-07-23] MEDS: BENAZEPRIL 10 MG TAB PO (10:03)
[2017-07-23] MEDS: ENOXAPARIN 30 MG/0.3 ML SYG SC (10:04)
[2017-07-23 11:34] LABS: ADD MAN DIFF? NO
[2017-07-23 11:58] LABS: ANION GAP 15 (8-16); BLOOD UREA NITROGEN 7 mg/dl (7-20); CALCIUM 9.2 mg/dl (8.4-10.2); CARBON DIOXIDE 28 mmol/L (21-31); CHLORIDE 104 mmol/L (97-110); CREATININE 0.31 mg/dl (0.44-1.00); GLUCOSE 124 mg/dl (70-220); POTASSIUM 3.2 mmol/L (3.5-5.1); SODIUM 144 mmol/L (135-144)
[2017-07-23 12:12] LABS: BASOPHILS % 0.3 % (0.0-2.0); EOSINOPHILS # 0.1 10^3/ul (0.0-0.5); EOSINOPHILS % 0.8 % (0.0-7.0); HEMATOCRIT 27.7 % (37.0-47.0); LYMPHOCYTES # 1.3 10^3/ul (0.8-2.9); LYMPHOCYTES % 10.1 % (15.0-51.0); MEAN CORPUSCULAR HEMOGLOBIN 30.8 pg (29.0-33.0); MEAN CORPUSCULAR HGB CONC 32.5 g/dl (32.0-37.0); MEAN CORPUSCULAR VOLUME 94.9 fl (82.0-101.0); MEAN PLATELET VOLUME 9.8 fl (7.4-10.4); MONOCYTES % 7.8 % (0.0-11.0); NEUTROPHIL # 10.7 10^3/ul (1.6-7.5); NEUTROPHILS % 80.2 % (39.0-77.0); PLATELET COUNT 505 10^3/UL (140-415); RED BLOOD COUNT 2.92 10^6/ul (4.20-5.40); RED CELL DISTRIBUTION WIDTH 15.9 % (11.5-14.5)
[2017-07-23 12:12] LABS: WHITE BLOOD COUNT 13.3 10^3/ul (4.8-10.8)
[2017-07-23] MEDS: POTASSIUM CHLORIDE (SR) 20 MEQ TAB PO (14:30)
[2017-07-23] MEDS: CASPOFUNGIN 50 MG in SOD CHLORIDE 0.9% 250 ML IVPB (21:28)
[2017-07-23] MEDS: ONDANSETRON 4 MG INJ IV (21:29)
[2017-07-24 03:07] LABS: VANCOMYCIN,TROUGH 16.6 ug/ml (10.0-20.0)
[2017-07-24] MEDS: VANCOMYCIN 750 MG in DEXTROSE 5% 150 ML IVPB ×3 (03:53→18:45)
[2017-07-24] MEDS: METOCLOPRAMIDE 10 MG INJ IV ×4 (05:22→17:18)
[2017-07-24] MEDS: SOD CHLORIDE 0.9% 1,000 ML IV ×2 (05:32→17:18)
[2017-07-24] MEDS: metroNIDAZOLE 500 MG/NS (PMX) 100 ML IVPB ×3 (05:32→22:06)
[2017-07-24] MEDS: CEFEPIME 2GM/50 ML (PMX) 50 ML IVPB ×2 (08:16→21:00)
[2017-07-24] MEDS: BENAZEPRIL 5 MG TAB PO (08:16)
[2017-07-24] MEDS: FAMOTIDINE 20 MG INJ IV (08:16)
[2017-07-24] MEDS: ATENOLOL 25 MG TAB PO ×2 (08:17→21:00)
[2017-07-24] MEDS: COLLAGENASE 30 GM TUBE TOP (08:27)
[2017-07-24] MEDS: ENOXAPARIN 30 MG/0.3 ML SYG SC (08:32)
[2017-07-24 08:54] LABS: ADD MAN DIFF? NO
[2017-07-24 09:01] LABS: BASOPHILS % 0.4 % (0.0-2.0); EOSINOPHILS # 0.2 10^3/ul (0.0-0.5); EOSINOPHILS % 1.5 % (0.0-7.0); HEMATOCRIT 27.2 % (37.0-47.0); HEMOGLOBIN 8.9 g/dl (12.0-16.0); LYMPHOCYTES # 1.8 10^3/ul (0.8-2.9); LYMPHOCYTES % 18.8 % (15.0-51.0); MEAN CORPUSCULAR HEMOGLOBIN 30.6 pg (29.0-33.0); MEAN CORPUSCULAR HGB CONC 32.7 g/dl (32.0-37.0); MEAN CORPUSCULAR VOLUME 93.5 fl (82.0-101.0); MEAN PLATELET VOLUME 9.9 fl (7.4-10.4); MONOCYTE # 1.2 10^3/ul (0.3-0.9); MONOCYTES % 11.9 % (0.0-11.0); NEUTROPHIL # 6.5 10^3/ul (1.6-7.5); NEUTROPHILS % 66.5 % (39.0-77.0); PLATELET COUNT 499 10^3/UL (140-415); RED BLOOD COUNT 2.91 10^6/ul (4.20-5.40); RED CELL DISTRIBUTION WIDTH 15.7 % (11.5-14.5)
[2017-07-24 09:01] LABS: WHITE BLOOD COUNT 9.7 10^3/ul (4.8-10.8)
[2017-07-24 09:41] LABS: ANION GAP 14 (8-16); BLOOD UREA NITROGEN 9 mg/dl (7-20); CARBON DIOXIDE 27 mmol/L (21-31); CHLORIDE 105 mmol/L (97-110); CREATININE 0.33 mg/dl (0.44-1.00); GLUCOSE 95 mg/dl (70-220); POTASSIUM 3.7 mmol/L (3.5-5.1); SODIUM 142 mmol/L (135-144)
[2017-07-24] MEDS: morphine 2 MG INJ IV ×2 (13:03→22:06)
[2017-07-24] MEDS: CASPOFUNGIN 50 MG in SOD CHLORIDE 0.9% 250 ML IVPB (22:06)
[2017-07-25] MEDS: SOD CHLORIDE 0.9% 1,000 ML IV ×4 (02:31→22:35)
[2017-07-25] MEDS: VANCOMYCIN 750 MG in DEXTROSE 5% 150 ML IVPB ×3 (03:30→18:32)
[2017-07-25] MEDS: METOCLOPRAMIDE 10 MG INJ IV ×3 (05:30→11:25)
[2017-07-25] MEDS: metroNIDAZOLE 500 MG/NS (PMX) 100 ML IVPB ×3 (05:30→22:27)
[2017-07-25] MEDS: CEFEPIME 2GM/50 ML (PMX) 50 ML IVPB ×2 (09:03→22:35)
[2017-07-25] MEDS: FAMOTIDINE 20 MG INJ IV (09:05)
[2017-07-25] MEDS: ATENOLOL 25 MG TAB PO ×2 (09:07→22:35)
[2017-07-25] MEDS: BENAZEPRIL 5 MG TAB PO (09:07)
[2017-07-25] MEDS: COLLAGENASE 30 GM TUBE TOP (09:08)
[2017-07-25] MEDS: ENOXAPARIN 30 MG/0.3 ML SYG SC (09:12)
[2017-07-25 10:01] LABS: ADD MAN DIFF? NO
[2017-07-25 10:04] LABS: WHITE BLOOD COUNT 10.9 10^3/ul (4.8-10.8)
[2017-07-25 10:04] LABS: BASOPHILS % 0.3 % (0.0-2.0); EOSINOPHILS # 0.1 10^3/ul (0.0-0.5); EOSINOPHILS % 0.8 % (0.0-7.0); HEMOGLOBIN 8.6 g/dl (12.0-16.0); LYMPHOCYTES # 1.5 10^3/ul (0.8-2.9); LYMPHOCYTES % 13.8 % (15.0-51.0); MEAN CORPUSCULAR HEMOGLOBIN 31.2 pg (29.0-33.0); MEAN CORPUSCULAR HGB CONC 33.1 g/dl (32.0-37.0); MEAN CORPUSCULAR VOLUME 94.2 fl (82.0-101.0); MEAN PLATELET VOLUME 10.1 fl (7.4-10.4); MONOCYTE # 0.9 10^3/ul (0.3-0.9); MONOCYTES % 8.1 % (0.0-11.0); NEUTROPHIL # 8.3 10^3/ul (1.6-7.5); NEUTROPHILS % 76.3 % (39.0-77.0); PLATELET COUNT 443 10^3/UL (140-415); RED BLOOD COUNT 2.76 10^6/ul (4.20-5.40); RED CELL DISTRIBUTION WIDTH 15.9 % (11.5-14.5)
[2017-07-25 10:28] LABS: ANION GAP 13 (8-16); BLOOD UREA NITROGEN 8 mg/dl (7-20); CARBON DIOXIDE 27 mmol/L (21-31); CHLORIDE 104 mmol/L (97-110); CREATININE 0.31 mg/dl (0.44-1.00); GLUCOSE 122 mg/dl (70-220); POTASSIUM 3.4 mmol/L (3.5-5.1); SODIUM 141 mmol/L (135-144)
[2017-07-25] MEDS ORDERED: METOCLOPRAMIDE (1 MG/ML) 10 ML CUP GTB (12:00)
[2017-07-25] MEDS: POTASSIUM CHLORIDE 20 MEQ POWDER FOR ORAL SOLN GTB (16:09)
[2017-07-25] MEDS: ACETAMINOPHEN 650MG/20.3ML CUP NGT (16:55)
[2017-07-25] MEDS: METOCLOPRAMIDE (1 MG/ML) 10 ML CUP GTB (18:32)
[2017-07-25] MEDS: CASPOFUNGIN 50 MG in SOD CHLORIDE 0.9% 250 ML IVPB (22:35)
[2017-07-26] MEDS: METOCLOPRAMIDE (1 MG/ML) 10 ML CUP GTB ×4 (00:56→18:28)
[2017-07-26] MEDS: VANCOMYCIN 750 MG in DEXTROSE 5% 150 ML IVPB ×3 (03:13→18:28)
[2017-07-26] MEDS: metroNIDAZOLE 500 MG/NS (PMX) 100 ML IVPB ×3 (05:21→21:44)
[2017-07-26] MEDS: SOD CHLORIDE 0.9% 1,000 ML IV ×2 (08:30→18:30)
[2017-07-26] MEDS: CEFEPIME 2GM/50 ML (PMX) 50 ML IVPB ×2 (09:03→21:03)
[2017-07-26] MEDS: ATENOLOL 25 MG TAB PO ×2 (09:04→21:11)
[2017-07-26] MEDS: FAMOTIDINE 20 MG TAB GTB (09:04)
[2017-07-26] MEDS: BENAZEPRIL 5 MG TAB PO (09:04)
[2017-07-26] MEDS: COLLAGENASE 30 GM TUBE TOP (09:05)
[2017-07-26] MEDS: ENOXAPARIN 30 MG/0.3 ML SYG SC (09:11)
[2017-07-26 10:27] LABS: ADD MAN DIFF? NO
[2017-07-26 10:33] LABS: BASOPHILS % 0.4 % (0.0-2.0); EOSINOPHILS # 0.2 10^3/ul (0.0-0.5); EOSINOPHILS % 1.8 % (0.0-7.0); HEMOGLOBIN 9.2 g/dl (12.0-16.0); LYMPHOCYTES # 1.8 10^3/ul (0.8-2.9); LYMPHOCYTES % 19.6 % (15.0-51.0); MEAN CORPUSCULAR HEMOGLOBIN 30.4 pg (29.0-33.0); MEAN CORPUSCULAR HGB CONC 31.7 g/dl (32.0-37.0); MEAN CORPUSCULAR VOLUME 95.7 fl (82.0-101.0); MEAN PLATELET VOLUME 10.1 fl (7.4-10.4); MONOCYTES % 10.6 % (0.0-11.0); NEUTROPHILS % 66.8 % (39.0-77.0); PLATELET COUNT 438 10^3/UL (140-415); RED BLOOD COUNT 3.03 10^6/ul (4.20-5.40); RED CELL DISTRIBUTION WIDTH 15.4 % (11.5-14.5)
[2017-07-26 10:52] LABS: VANCOMYCIN,TROUGH 14.6 ug/ml (10.0-20.0)
[2017-07-26 11:15] LABS: ANION GAP 13 (8-16); BLOOD UREA NITROGEN 9 mg/dl (7-20); CALCIUM 9.1 mg/dl (8.4-10.2); CARBON DIOXIDE 27 mmol/L (21-31); CHLORIDE 104 mmol/L (97-110); CREATININE 0.31 mg/dl (0.44-1.00); GLUCOSE 110 mg/dl (70-220); SODIUM 140 mmol/L (135-144)
[2017-07-26] MEDS: CASPOFUNGIN 50 MG in SOD CHLORIDE 0.9% 250 ML IVPB (22:03)
[2017-07-27] MEDS: METOCLOPRAMIDE (1 MG/ML) 10 ML CUP GTB ×4 (00:21→17:50)
[2017-07-27] MEDS: VANCOMYCIN 750 MG in DEXTROSE 5% 150 ML IVPB ×3 (02:41→18:19)
[2017-07-27] MEDS: SOD CHLORIDE 0.9% 1,000 ML IV ×3 (04:30→17:51)
[2017-07-27] MEDS: metroNIDAZOLE 500 MG/NS (PMX) 100 ML IVPB ×3 (05:26→21:56)
[2017-07-27] MEDS: FAMOTIDINE 20 MG TAB GTB (09:43)
[2017-07-27] MEDS: ATENOLOL 25 MG TAB PO ×2 (09:43→21:00)
[2017-07-27] MEDS: BENAZEPRIL 5 MG TAB PO (09:44)
[2017-07-27] MEDS: ENOXAPARIN 30 MG/0.3 ML SYG SC (09:45)
[2017-07-27] MEDS: COLLAGENASE 30 GM TUBE TOP (09:49)
[2017-07-27] MEDS: CEFEPIME 2GM/50 ML (PMX) 50 ML IVPB ×2 (09:52→21:54)
[2017-07-27 18:51] LABS: ADD UMIC YES; UR ASCORBIC ACID NEGATIVE (NEGATIVE); UR BACTERIA FEW /HPF (NONE SEEN); UR BILIRUBIN (Dip) NEGATIVE (NEGATIVE); UR BLOOD (Dip) NEGATIVE (NEGATIVE); UR CLARITY CLEAR (CLEAR); UR COLOR YELLOW (YELLOW); UR GLUCOSE (Dip) NEGATIVE (NEGATIVE); UR KETONES (Dip) NEGATIVE (NEGATIVE); UR LEUKOCYTE ESTERASE (Dip) TRACE Leu/ul (NEGATIVE); UR NITRITE (Dip) NEGATIVE (NEGATIVE); UR RBC 0 /HPF (0-5); UR SPECIFIC GRAVITY (Dip) 1.009 (1.003-1.030); UR TOTAL PROTEIN (Dip) NEGATIVE (NEGATIVE); UR UROBILINOGEN (Dip) NEGATIVE (NEGATIVE); UR WBC 4 /HPF (0-5)
[2017-07-27] MEDS: CASPOFUNGIN 50 MG in SOD CHLORIDE 0.9% 250 ML IVPB (21:56)
[2017-07-28] MEDS: COLLAGENASE 30 GM TUBE TOP ×2 (01:00→08:41)
[2017-07-28] MEDS: METOCLOPRAMIDE (1 MG/ML) 10 ML CUP GTB ×4 (01:10→17:19)
[2017-07-28] MEDS: VANCOMYCIN 750 MG in DEXTROSE 5% 150 ML IVPB ×3 (03:18→21:03)
[2017-07-28] MEDS: metroNIDAZOLE 500 MG/NS (PMX) 100 ML IVPB ×2 (05:56→15:40)
[2017-07-28 07:59] LABS: ADD MAN DIFF? NO
[2017-07-28 08:04] LABS: WHITE BLOOD COUNT 9.8 10^3/ul (4.8-10.8)
[2017-07-28 08:04] LABS: BASOPHILS % 0.4 % (0.0-2.0); EOSINOPHILS # 0.1 10^3/ul (0.0-0.5); EOSINOPHILS % 1.4 % (0.0-7.0); HEMATOCRIT 28.2 % (37.0-47.0); LYMPHOCYTES # 1.4 10^3/ul (0.8-2.9); MEAN CORPUSCULAR HEMOGLOBIN 30.3 pg (29.0-33.0); MEAN CORPUSCULAR HGB CONC 31.9 g/dl (32.0-37.0); MEAN CORPUSCULAR VOLUME 94.9 fl (82.0-101.0); MEAN PLATELET VOLUME 10.4 fl (7.4-10.4); MONOCYTES % 10.6 % (0.0-11.0); NEUTROPHIL # 7.1 10^3/ul (1.6-7.5); NEUTROPHILS % 72.7 % (39.0-77.0); PLATELET COUNT 413 10^3/UL (140-415); RED BLOOD COUNT 2.97 10^6/ul (4.20-5.40); RED CELL DISTRIBUTION WIDTH 15.4 % (11.5-14.5)
[2017-07-28] MEDS: morphine 2 MG INJ IV (08:21)
[2017-07-28] MEDS: FAMOTIDINE 20 MG TAB GTB (08:22)
[2017-07-28] MEDS: ATENOLOL 25 MG TAB PO ×2 (08:22→21:04)
[2017-07-28] MEDS: BENAZEPRIL 5 MG TAB PO (08:22)
[2017-07-28 08:28] LABS: ANION GAP 13 (8-16); BLOOD UREA NITROGEN 8 mg/dl (7-20); CALCIUM 8.5 mg/dl (8.4-10.2); CARBON DIOXIDE 28 mmol/L (21-31); CHLORIDE 103 mmol/L (97-110); CREATININE 0.34 mg/dl (0.44-1.00); GLUCOSE 139 mg/dl (70-220); POTASSIUM 3.4 mmol/L (3.5-5.1); SODIUM 141 mmol/L (135-144)
[2017-07-28] MEDS: ENOXAPARIN 30 MG/0.3 ML SYG SC (08:37)
[2017-07-28] MEDS: CEFEPIME 2GM/50 ML (PMX) 50 ML IVPB ×2 (08:41→21:03)
[2017-07-28] MEDS: SOD CHLORIDE 0.9% 1,000 ML IV ×2 (11:08→21:03)
[2017-07-28] MEDS ORDERED: POTASSIUM CHLORIDE 20 MEQ in DEXTROSE 5% 100 ML IVPB (13:30)
[2017-07-28] MEDS: POTASSIUM CHLORIDE 50 ML IVPB (17:20)
[2017-07-28] MEDS: BARIUM SULF 2% 450 ML BTL (BERRY SMOOTHIE) PO (21:02)
[2017-07-28] MEDS: CASPOFUNGIN 50 MG in SOD CHLORIDE 0.9% 250 ML IVPB (21:04)
[2017-07-29] MEDS: metroNIDAZOLE 500 MG/NS (PMX) 100 ML IVPB ×5 (01:13→22:50)
[2017-07-29] MEDS: METOCLOPRAMIDE (1 MG/ML) 10 ML CUP GTB ×4 (01:13→17:22)
[2017-07-29] MEDS: VANCOMYCIN 750 MG in DEXTROSE 5% 150 ML IVPB ×3 (05:03→21:00)
[2017-07-29] MEDS: ACETAMINOPHEN 650MG/20.3ML CUP NGT (05:04)
[2017-07-29] MEDS: ONDANSETRON 4 MG INJ IV (05:40)
[2017-07-29] MEDS: SOD CHLORIDE 0.9% 1,000 ML IV (06:30)
[2017-07-29 06:46] LABS: ADD MAN DIFF? NO
[2017-07-29 06:53] LABS: BASOPHIL # 0.1 10^3/ul (0.0-0.1); BASOPHILS % 0.5 % (0.0-2.0); EOSINOPHILS # 0.2 10^3/ul (0.0-0.5); EOSINOPHILS % 1.5 % (0.0-7.0); HEMATOCRIT 29.1 % (37.0-47.0); HEMOGLOBIN 9.6 g/dl (12.0-16.0); LYMPHOCYTES # 1.4 10^3/ul (0.8-2.9); LYMPHOCYTES % 12.9 % (15.0-51.0); MEAN CORPUSCULAR HEMOGLOBIN 30.9 pg (29.0-33.0); MEAN CORPUSCULAR VOLUME 93.6 fl (82.0-101.0); MEAN PLATELET VOLUME 10.4 fl (7.4-10.4); MONOCYTE # 1.3 10^3/ul (0.3-0.9); MONOCYTES % 11.7 % (0.0-11.0); NEUTROPHILS % 72.3 % (39.0-77.0); PLATELET COUNT 381 10^3/UL (140-415); RED BLOOD COUNT 3.11 10^6/ul (4.20-5.40); RED CELL DISTRIBUTION WIDTH 15.4 % (11.5-14.5)
[2017-07-29 07:23] LABS: ALANINE AMINOTRANSFERASE 43 IU/L (13-69); ALBUMIN 3.6 g/dl (3.3-4.9); ALBUMIN/GLOBULIN RATIO 1.09; ALKALINE PHOSPHATASE 112 IU/L (42-121); ANION GAP 16 (8-16); ASPARTATE AMINO TRANSFERASE 37 IU/L (15-46); BLOOD UREA NITROGEN 4 mg/dl (7-20); CALCIUM 9.3 mg/dl (8.4-10.2); CARBON DIOXIDE 29 mmol/L (21-31); CHLORIDE 102 mmol/L (97-110); CREATININE 0.33 mg/dl (0.44-1.00); GLUCOSE 110 mg/dl (70-220); POTASSIUM 3.6 mmol/L (3.5-5.1); SODIUM 143 mmol/L (135-144); TOTAL PROTEIN 6.9 g/dl (6.1-8.1)
[2017-07-29] MEDS: COLLAGENASE 30 GM TUBE TOP ×2 (09:00→23:23)
[2017-07-29] MEDS: FAMOTIDINE 20 MG TAB GTB (09:00)
[2017-07-29] MEDS: BENAZEPRIL 5 MG TAB PO (09:00)
[2017-07-29] MEDS: ATENOLOL 25 MG TAB PO ×2 (09:00→20:36)
[2017-07-29] MEDS: D5W-0.45 NACL + KCL 20 MEQ 1,000 ML IV ×2 (09:10→17:22)
[2017-07-29] MEDS: CEFEPIME 2GM/50 ML (PMX) 50 ML IVPB ×2 (09:11→20:37)
[2017-07-29] MEDS: ENOXAPARIN 30 MG/0.3 ML SYG SC (09:45)
[2017-07-29] MEDS: morphine 2 MG INJ IV ×2 (13:52→20:38)
[2017-07-29] MEDS ORDERED: POTASSIUM CHLORIDE 30 MEQ in DEXTROSE 5% 250 ML IVPB (15:30)
[2017-07-29] MEDS: POTASSIUM CHLORIDE 50 ML IVPB ×3 (16:37→19:15)
[2017-07-29] MEDS: KETOROLAC 15 MG INJ IM (17:52)
[2017-07-29] MEDS ORDERED: COLLAGENASE 30 GM TUBE TOP (20:30)
[2017-07-29] MEDS: CASPOFUNGIN 50 MG in SOD CHLORIDE 0.9% 250 ML IVPB (20:37)
[2017-07-29 20:57] LABS: VANCOMYCIN,TROUGH 24.1 ug/ml (10.0-20.0)
[2017-07-30] MEDS: morphine 2 MG INJ IV ×3 (02:52→11:21)
[2017-07-30] MEDS: D5W-0.45 NACL + KCL 20 MEQ 1,000 ML IV ×2 (03:30→09:45)
[2017-07-30] MEDS: VANCOMYCIN 750 MG in DEXTROSE 5% 150 ML IVPB ×2 (04:07→18:11)
[2017-07-30] MEDS: ACETAMINOPHEN 325 MG SUPP PR (04:08)
[2017-07-30] MEDS: METOCLOPRAMIDE (1 MG/ML) 10 ML CUP GTB ×5 (05:32→23:57)
[2017-07-30] MEDS: metroNIDAZOLE 500 MG/NS (PMX) 100 ML IVPB ×3 (05:33→22:07)
[2017-07-30 06:49] LABS: ADD MAN DIFF? NO
[2017-07-30 06:51] LABS: BASOPHILS % 0.5 % (0.0-2.0); EOSINOPHILS # 0.2 10^3/ul (0.0-0.5); EOSINOPHILS % 1.7 % (0.0-7.0); HEMATOCRIT 27.3 % (37.0-47.0); LYMPHOCYTES # 1.6 10^3/ul (0.8-2.9); LYMPHOCYTES % 18.3 % (15.0-51.0); MEAN CORPUSCULAR VOLUME 94.1 fl (82.0-101.0); MEAN PLATELET VOLUME 10.3 fl (7.4-10.4); MONOCYTE # 1.1 10^3/ul (0.3-0.9); MONOCYTES % 13.1 % (0.0-11.0); NEUTROPHIL # 5.6 10^3/ul (1.6-7.5); NEUTROPHILS % 64.9 % (39.0-77.0); PLATELET COUNT 342 10^3/UL (140-415); RED CELL DISTRIBUTION WIDTH 15.3 % (11.5-14.5)
[2017-07-30 06:51] LABS: WHITE BLOOD COUNT 8.6 10^3/ul (4.8-10.8)
[2017-07-30 07:24] LABS: ANION GAP 12 (8-16); BLOOD UREA NITROGEN 6 mg/dl (7-20); CALCIUM 9.7 mg/dl (8.4-10.2); CARBON DIOXIDE 28 mmol/L (21-31); CHLORIDE 102 mmol/L (97-110); CREATININE 0.36 mg/dl (0.44-1.00); GLUCOSE 109 mg/dl (70-220); SODIUM 138 mmol/L (135-144)
[2017-07-30] MEDS: CEFEPIME 2GM/50 ML (PMX) 50 ML IVPB ×2 (09:44→19:56)
[2017-07-30] MEDS: FAMOTIDINE 20 MG TAB GTB (09:45)
[2017-07-30] MEDS: ATENOLOL 25 MG TAB PO ×2 (09:45→20:42)
[2017-07-30] MEDS: BENAZEPRIL 5 MG TAB PO (09:45)
[2017-07-30] MEDS: COLLAGENASE 30 GM TUBE TOP (09:47)
[2017-07-30] MEDS: ENOXAPARIN 30 MG/0.3 ML SYG SC (09:51)
[2017-07-30] MEDS: ACETAMINOPHEN 650MG/20.3ML CUP NGT (09:59)
[2017-07-30] MEDS: CASPOFUNGIN 50 MG in SOD CHLORIDE 0.9% 250 ML IVPB (20:38)
[2017-07-31] MEDS: D5W-0.45 NACL + KCL 20 MEQ 1,000 ML IV ×3 (01:19→14:13)
[2017-07-31] MEDS: VANCOMYCIN 750 MG in DEXTROSE 5% 150 ML IVPB ×2 (03:56→17:58)
[2017-07-31] MEDS: morphine 2 MG INJ IV ×3 (04:35→23:46)
[2017-07-31] MEDS: METOCLOPRAMIDE (1 MG/ML) 10 ML CUP GTB ×3 (06:00→17:58)
[2017-07-31] MEDS: metroNIDAZOLE 500 MG/NS (PMX) 100 ML IVPB ×2 (06:03→14:13)
[2017-07-31 08:21] LABS: ADD MAN DIFF? NO
[2017-07-31 08:24] LABS: WHITE BLOOD COUNT 8.3 10^3/ul (4.8-10.8)
[2017-07-31 08:24] LABS: BASOPHILS % 0.5 % (0.0-2.0); EOSINOPHILS # 0.2 10^3/ul (0.0-0.5); EOSINOPHILS % 2.2 % (0.0-7.0); HEMATOCRIT 28.3 % (37.0-47.0); HEMOGLOBIN 9.4 g/dl (12.0-16.0); LYMPHOCYTES # 1.5 10^3/ul (0.8-2.9); LYMPHOCYTES % 17.9 % (15.0-51.0); MEAN CORPUSCULAR HEMOGLOBIN 30.9 pg (29.0-33.0); MEAN CORPUSCULAR HGB CONC 33.2 g/dl (32.0-37.0); MEAN CORPUSCULAR VOLUME 93.1 fl (82.0-101.0); MEAN PLATELET VOLUME 10.4 fl (7.4-10.4); MONOCYTE # 1.2 10^3/ul (0.3-0.9); NEUTROPHIL # 5.3 10^3/ul (1.6-7.5); NEUTROPHILS % 63.5 % (39.0-77.0); PLATELET COUNT 337 10^3/UL (140-415); RED BLOOD COUNT 3.04 10^6/ul (4.20-5.40); RED CELL DISTRIBUTION WIDTH 15.1 % (11.5-14.5)
[2017-07-31 08:52] LABS: ANION GAP 16 (8-16); BLOOD UREA NITROGEN 3 mg/dl (7-20); CALCIUM 9.1 mg/dl (8.4-10.2); CARBON DIOXIDE 26 mmol/L (21-31); CHLORIDE 103 mmol/L (97-110); CREATININE 0.32 mg/dl (0.44-1.00); GLUCOSE 100 mg/dl (70-220); POTASSIUM 3.4 mmol/L (3.5-5.1); SODIUM 142 mmol/L (135-144)
[2017-07-31] MEDS: FAMOTIDINE 20 MG TAB GTB (09:00)
[2017-07-31] MEDS: COLLAGENASE 30 GM TUBE TOP (09:00)
[2017-07-31] MEDS: CEFEPIME 2GM/50 ML (PMX) 50 ML IVPB ×2 (10:01→23:29)
[2017-07-31] MEDS: BENAZEPRIL 5 MG TAB PO (10:02)
[2017-07-31] MEDS: ATENOLOL 25 MG TAB PO ×2 (10:02→22:01)
[2017-07-31] MEDS: ENOXAPARIN 30 MG/0.3 ML SYG SC (10:21)
[2017-07-31] MEDS ORDERED: POTASSIUM CHLORIDE 30 MEQ in DEXTROSE 5% 250 ML IVPB (17:00)
[2017-07-31] MEDS: POTASSIUM CHLORIDE 50 ML IVPB ×2 (21:59→23:29)
[2017-08-01] MEDS: POTASSIUM CHLORIDE 50 ML IVPB (00:30)
[2017-08-01] MEDS: CASPOFUNGIN 50 MG in SOD CHLORIDE 0.9% 250 ML IVPB ×2 (00:30→21:42)
[2017-08-01] MEDS: METOCLOPRAMIDE (1 MG/ML) 10 ML CUP GTB ×5 (00:37→23:23)
[2017-08-01] MEDS: metroNIDAZOLE 500 MG/NS (PMX) 100 ML IVPB ×4 (01:38→21:42)
[2017-08-01] MEDS: VANCOMYCIN 750 MG in DEXTROSE 5% 150 ML IVPB ×2 (04:25→18:13)
[2017-08-01] MEDS: D5W-0.45 NACL + KCL 20 MEQ 1,000 ML IV ×2 (05:30→15:16)
[2017-08-01] MEDS: morphine 2 MG INJ IV ×2 (06:51→23:36)
[2017-08-01 08:23] LABS: ADD MAN DIFF? NO
[2017-08-01 08:28] LABS: BASOPHILS % 0.5 % (0.0-2.0); EOSINOPHILS # 0.1 10^3/ul (0.0-0.5); EOSINOPHILS % 1.6 % (0.0-7.0); HEMATOCRIT 27.7 % (37.0-47.0); LYMPHOCYTES # 1.4 10^3/ul (0.8-2.9); LYMPHOCYTES % 15.6 % (15.0-51.0); MEAN CORPUSCULAR HEMOGLOBIN 30.4 pg (29.0-33.0); MEAN CORPUSCULAR HGB CONC 32.5 g/dl (32.0-37.0); MEAN CORPUSCULAR VOLUME 93.6 fl (82.0-101.0); MEAN PLATELET VOLUME 10.5 fl (7.4-10.4); MONOCYTE # 1.1 10^3/ul (0.3-0.9); NEUTROPHILS % 67.9 % (39.0-77.0); PLATELET COUNT 310 10^3/UL (140-415); RED BLOOD COUNT 2.96 10^6/ul (4.20-5.40); RED CELL DISTRIBUTION WIDTH 15.2 % (11.5-14.5)
[2017-08-01 08:28] LABS: WHITE BLOOD COUNT 8.8 10^3/ul (4.8-10.8)
[2017-08-01 08:57] LABS: ANION GAP 12 (8-16); BLOOD UREA NITROGEN 3 mg/dl (7-20); CALCIUM 9.1 mg/dl (8.4-10.2); CARBON DIOXIDE 27 mmol/L (21-31); CHLORIDE 101 mmol/L (97-110); CREATININE 0.31 mg/dl (0.44-1.00); GLUCOSE 343 mg/dl (70-220); POTASSIUM 4.8 mmol/L (3.5-5.1); SODIUM 135 mmol/L (135-144)
[2017-08-01] MEDS: ATENOLOL 25 MG TAB PO ×2 (09:00→20:22)
[2017-08-01] MEDS: BENAZEPRIL 5 MG TAB PO (09:00)
[2017-08-01] MEDS: COLLAGENASE 30 GM TUBE TOP (09:43)
[2017-08-01] MEDS: CEFEPIME 2GM/50 ML (PMX) 50 ML IVPB ×2 (09:43→20:21)
[2017-08-01] MEDS: FAMOTIDINE 20 MG TAB GTB (09:44)
[2017-08-01] MEDS: ENOXAPARIN 30 MG/0.3 ML SYG SC (09:53)
[2017-08-01] MEDS: ACETAMINOPHEN 650MG/20.3ML CUP NGT (11:33)
[2017-08-01] MEDS: ONDANSETRON 4 MG INJ IV (23:40)
[2017-08-02] MEDS: D5W-0.45 NACL + KCL 20 MEQ 1,000 ML IV ×3 (01:17→21:13)
[2017-08-02 03:45] LABS: ADD MAN DIFF? NO
[2017-08-02 04:06] LABS: BASOPHILS % 0.3 % (0.0-2.0); EOSINOPHILS # 0.2 10^3/ul (0.0-0.5); EOSINOPHILS % 1.3 % (0.0-7.0); HEMATOCRIT 31.2 % (37.0-47.0); HEMOGLOBIN 10.2 g/dl (12.0-16.0); LYMPHOCYTES # 1.6 10^3/ul (0.8-2.9); LYMPHOCYTES % 14.5 % (15.0-51.0); MEAN CORPUSCULAR HEMOGLOBIN 30.8 pg (29.0-33.0); MEAN CORPUSCULAR HGB CONC 32.7 g/dl (32.0-37.0); MEAN CORPUSCULAR VOLUME 94.3 fl (82.0-101.0); MEAN PLATELET VOLUME 10.4 fl (7.4-10.4); MONOCYTES % 8.9 % (0.0-11.0); NEUTROPHIL # 8.3 10^3/ul (1.6-7.5); NEUTROPHILS % 73.7 % (39.0-77.0); PLATELET COUNT 345 10^3/UL (140-415); RED BLOOD COUNT 3.31 10^6/ul (4.20-5.40)
[2017-08-02 04:06] LABS: WHITE BLOOD COUNT 11.3 10^3/ul (4.8-10.8)
[2017-08-02 04:10] LABS: ANION GAP 16 (8-16); BLOOD UREA NITROGEN 2 mg/dl (7-20); CALCIUM 9.5 mg/dl (8.4-10.2); CARBON DIOXIDE 27 mmol/L (21-31); CHLORIDE 104 mmol/L (97-110); CREATININE 0.34 mg/dl (0.44-1.00); GLUCOSE 112 mg/dl (70-220); SODIUM 143 mmol/L (135-144)
[2017-08-02 04:12] LABS: VANCOMYCIN,TROUGH 13.5 ug/ml (10.0-20.0)
[2017-08-02] MEDS: VANCOMYCIN 750 MG in DEXTROSE 5% 150 ML IVPB ×2 (05:04→17:00)
[2017-08-02] MEDS: METOCLOPRAMIDE (1 MG/ML) 10 ML CUP GTB ×3 (05:05→17:46)
[2017-08-02] MEDS: metroNIDAZOLE 500 MG/NS (PMX) 100 ML IVPB ×3 (05:51→21:49)
[2017-08-02] MEDS: ACETAMINOPHEN 650MG/20.3ML CUP NGT (06:31)
[2017-08-02] MEDS: CEFEPIME 2GM/50 ML (PMX) 50 ML IVPB ×2 (10:06→21:12)
[2017-08-02] MEDS: FAMOTIDINE 20 MG TAB GTB (10:06)
[2017-08-02] MEDS: COLLAGENASE 30 GM TUBE TOP (10:06)
[2017-08-02] MEDS: ATENOLOL 25 MG TAB PO ×2 (10:06→21:12)
[2017-08-02] MEDS: ENOXAPARIN 30 MG/0.3 ML SYG SC (10:09)
[2017-08-02] MEDS: DIATR MEGLU/DIATRIZOATE SODIUM 120 ML BTL (13:37)
[2017-08-02] MEDS: CASPOFUNGIN 50 MG in SOD CHLORIDE 0.9% 250 ML IVPB (21:34)
[2017-08-02] MEDS: ERYTHROMYCIN BASE (EC) 250 MG TAB PO (21:34)
[2017-08-03] MEDS: METOCLOPRAMIDE (1 MG/ML) 10 ML CUP GTB ×4 (01:51→17:26)
[2017-08-03] MEDS: VANCOMYCIN 750 MG in DEXTROSE 5% 150 ML IVPB ×2 (03:10→15:37)
[2017-08-03] MEDS: metroNIDAZOLE 500 MG/NS (PMX) 100 ML IVPB ×3 (06:02→21:38)
[2017-08-03] MEDS: ERYTHROMYCIN BASE (EC) 250 MG TAB PO ×3 (06:02→21:38)
[2017-08-03] MEDS: D5W-0.45 NACL + KCL 20 MEQ 1,000 ML IV ×2 (07:30→15:37)
[2017-08-03] MEDS: ATENOLOL 25 MG TAB PO ×2 (08:51→21:00)
[2017-08-03] MEDS: FAMOTIDINE 20 MG TAB GTB (08:51)
[2017-08-03] MEDS: CEFEPIME 2GM/50 ML (PMX) 50 ML IVPB ×2 (08:51→21:03)
[2017-08-03] MEDS: ENOXAPARIN 30 MG/0.3 ML SYG SC (08:54)
[2017-08-03 09:47] LABS: ADD MAN DIFF? NO
[2017-08-03 10:00] LABS: WHITE BLOOD COUNT 10.1 10^3/ul (4.8-10.8)
[2017-08-03 10:00] LABS: BASOPHILS % 0.3 % (0.0-2.0); EOSINOPHILS # 0.1 10^3/ul (0.0-0.5); EOSINOPHILS % 1.4 % (0.0-7.0); HEMATOCRIT 30.6 % (37.0-47.0); HEMOGLOBIN 9.9 g/dl (12.0-16.0); LYMPHOCYTES # 1.9 10^3/ul (0.8-2.9); LYMPHOCYTES % 18.7 % (15.0-51.0); MEAN CORPUSCULAR HEMOGLOBIN 30.7 pg (29.0-33.0); MEAN CORPUSCULAR HGB CONC 32.4 g/dl (32.0-37.0); MEAN CORPUSCULAR VOLUME 94.7 fl (82.0-101.0); MEAN PLATELET VOLUME 10.8 fl (7.4-10.4); MONOCYTE # 1.1 10^3/ul (0.3-0.9); MONOCYTES % 10.8 % (0.0-11.0); NEUTROPHIL # 6.8 10^3/ul (1.6-7.5); NEUTROPHILS % 67.6 % (39.0-77.0); PLATELET COUNT 291 10^3/UL (140-415); RED BLOOD COUNT 3.23 10^6/ul (4.20-5.40); RED CELL DISTRIBUTION WIDTH 14.9 % (11.5-14.5)
[2017-08-03 10:22] LABS: ANION GAP 15 (8-16); CALCIUM 9.3 mg/dl (8.4-10.2); CARBON DIOXIDE 26 mmol/L (21-31); CHLORIDE 105 mmol/L (97-110); CREATININE 0.31 mg/dl (0.44-1.00); GLUCOSE 103 mg/dl (70-220); POTASSIUM 3.6 mmol/L (3.5-5.1); SODIUM 142 mmol/L (135-144)
[2017-08-03 10:23] LABS: BLOOD UREA NITROGEN < 2 mg/dl (7-20)
[2017-08-03] MEDS: COLLAGENASE 30 GM TUBE TOP (12:21)
[2017-08-03] MEDS: CASPOFUNGIN 50 MG in SOD CHLORIDE 0.9% 250 ML IVPB (21:38)
[2017-08-04] MEDS: METOCLOPRAMIDE 10 MG INJ IV ×4 (00:11→18:19)
[2017-08-04] MEDS: D5W-0.45 NACL + KCL 20 MEQ 1,000 ML IV ×2 (00:42→17:48)
[2017-08-04] MEDS: morphine 2 MG INJ IV (01:22)
[2017-08-04] MEDS: VANCOMYCIN 750 MG in DEXTROSE 5% 150 ML IVPB ×2 (04:45→16:33)
[2017-08-04] MEDS: ERYTHROMYCIN BASE (EC) 250 MG TAB PO ×3 (05:40→21:56)
[2017-08-04] MEDS: metroNIDAZOLE 500 MG/NS (PMX) 100 ML IVPB ×3 (05:40→21:56)
[2017-08-04 06:22] LABS: ADD MAN DIFF? NO
[2017-08-04 06:37] LABS: BASOPHILS % 0.4 % (0.0-2.0); EOSINOPHILS # 0.2 10^3/ul (0.0-0.5); EOSINOPHILS % 1.4 % (0.0-7.0); HEMATOCRIT 29.4 % (37.0-47.0); HEMOGLOBIN 9.8 g/dl (12.0-16.0); LYMPHOCYTES # 1.8 10^3/ul (0.8-2.9); LYMPHOCYTES % 16.7 % (15.0-51.0); MEAN CORPUSCULAR HEMOGLOBIN 31.2 pg (29.0-33.0); MEAN CORPUSCULAR HGB CONC 33.3 g/dl (32.0-37.0); MEAN CORPUSCULAR VOLUME 93.6 fl (82.0-101.0); MEAN PLATELET VOLUME 10.7 fl (7.4-10.4); MONOCYTE # 1.1 10^3/ul (0.3-0.9); MONOCYTES % 10.2 % (0.0-11.0); NEUTROPHIL # 7.4 10^3/ul (1.6-7.5); NEUTROPHILS % 70.2 % (39.0-77.0); PLATELET COUNT 285 10^3/UL (140-415); RED BLOOD COUNT 3.14 10^6/ul (4.20-5.40); RED CELL DISTRIBUTION WIDTH 14.8 % (11.5-14.5)
[2017-08-04 06:37] LABS: WHITE BLOOD COUNT 10.5 10^3/ul (4.8-10.8)
[2017-08-04 07:10] LABS: ANION GAP 14 (8-16); CALCIUM 9.5 mg/dl (8.4-10.2); CARBON DIOXIDE 28 mmol/L (21-31); CHLORIDE 103 mmol/L (97-110); CREATININE 0.32 mg/dl (0.44-1.00); GLUCOSE 98 mg/dl (70-220); POTASSIUM 3.5 mmol/L (3.5-5.1); SODIUM 141 mmol/L (135-144)
[2017-08-04 07:13] LABS: BLOOD UREA NITROGEN < 2 mg/dl (7-20)
[2017-08-04] MEDS: ATENOLOL 25 MG TAB PO ×2 (09:00→21:24)
[2017-08-04] MEDS: FAMOTIDINE 20 MG TAB GTB (09:20)
[2017-08-04] MEDS: CEFEPIME 2GM/50 ML (PMX) 50 ML IVPB ×2 (09:20→21:05)
[2017-08-04] MEDS: COLLAGENASE 30 GM TUBE TOP (09:22)
[2017-08-04] MEDS: ENOXAPARIN 30 MG/0.3 ML SYG SC (09:53)
[2017-08-04] MEDS: CASPOFUNGIN 50 MG in SOD CHLORIDE 0.9% 250 ML IVPB (21:24)
[2017-08-05] MEDS: METOCLOPRAMIDE 10 MG INJ IV ×5 (00:28→23:51)
[2017-08-05] MEDS: VANCOMYCIN 750 MG in DEXTROSE 5% 150 ML IVPB (04:08)
[2017-08-05] MEDS: metroNIDAZOLE 500 MG/NS (PMX) 100 ML IVPB ×3 (05:21→21:42)
[2017-08-05] MEDS: D5W-0.45 NACL + KCL 20 MEQ 1,000 ML IV ×2 (05:22→17:50)
[2017-08-05] MEDS: ERYTHROMYCIN BASE (EC) 250 MG TAB PO ×3 (05:22→21:42)
[2017-08-05] MEDS: CEFEPIME 2GM/50 ML (PMX) 50 ML IVPB ×2 (08:42→20:20)
[2017-08-05] MEDS: FAMOTIDINE 20 MG TAB GTB (08:43)
[2017-08-05] MEDS: ATENOLOL 25 MG TAB PO ×2 (08:43→20:20)
[2017-08-05] MEDS: ENOXAPARIN 30 MG/0.3 ML SYG SC (09:06)
[2017-08-05] MEDS: COLLAGENASE 30 GM TUBE TOP (09:06)
[2017-08-05] MEDS: METOPROLOL 5 MG INJ IV (10:11)
[2017-08-05] MEDS: VANCOMYCIN 1 GM 250 ML IVPB (15:26)
[2017-08-05] MEDS: CASPOFUNGIN 50 MG in SOD CHLORIDE 0.9% 250 ML IVPB (21:31)
[2017-08-06] MEDS: VANCOMYCIN 1 GM 250 ML IVPB ×2 (03:57→16:39)
[2017-08-06] MEDS: METOCLOPRAMIDE 10 MG INJ IV ×3 (05:11→18:30)
[2017-08-06] MEDS: metroNIDAZOLE 500 MG/NS (PMX) 100 ML IVPB ×3 (05:12→21:44)
[2017-08-06] MEDS: ERYTHROMYCIN BASE (EC) 250 MG TAB PO ×3 (05:12→21:43)
[2017-08-06] MEDS: COLLAGENASE 30 GM TUBE TOP (09:00)
[2017-08-06] MEDS: ATENOLOL 25 MG TAB PO ×2 (10:19→21:44)
[2017-08-06] MEDS: FAMOTIDINE 20 MG TAB GTB (10:19)
[2017-08-06] MEDS: ENOXAPARIN 30 MG/0.3 ML SYG SC (10:20)
[2017-08-06] MEDS: CEFEPIME 2GM/50 ML (PMX) 50 ML IVPB ×2 (10:21→21:44)
[2017-08-06 10:27] LABS: ADD MAN DIFF? NO
[2017-08-06 10:39] LABS: WHITE BLOOD COUNT 10.5 10^3/ul (4.8-10.8)
[2017-08-06 10:39] LABS: BASOPHILS % 0.4 % (0.0-2.0); EOSINOPHILS # 0.1 10^3/ul (0.0-0.5); HEMATOCRIT 27.2 % (37.0-47.0); HEMOGLOBIN 8.8 g/dl (12.0-16.0); LYMPHOCYTES # 1.9 10^3/ul (0.8-2.9); MEAN CORPUSCULAR HEMOGLOBIN 30.4 pg (29.0-33.0); MEAN CORPUSCULAR HGB CONC 32.4 g/dl (32.0-37.0); MEAN CORPUSCULAR VOLUME 94.1 fl (82.0-101.0); MEAN PLATELET VOLUME 10.8 fl (7.4-10.4); MONOCYTE # 1.1 10^3/ul (0.3-0.9); MONOCYTES % 10.7 % (0.0-11.0); NEUTROPHIL # 7.2 10^3/ul (1.6-7.5); NEUTROPHILS % 68.9 % (39.0-77.0); PLATELET COUNT 254 10^3/UL (140-415); RED BLOOD COUNT 2.89 10^6/ul (4.20-5.40); RED CELL DISTRIBUTION WIDTH 14.7 % (11.5-14.5)
[2017-08-06 10:51] LABS: ANION GAP 13 (8-16); BLOOD UREA NITROGEN 3 mg/dl (7-20); CALCIUM 8.8 mg/dl (8.4-10.2); CARBON DIOXIDE 25 mmol/L (21-31); CHLORIDE 105 mmol/L (97-110); CREATININE 0.33 mg/dl (0.44-1.00); GLUCOSE 259 mg/dl (70-220); POTASSIUM 3.8 mmol/L (3.5-5.1); SODIUM 139 mmol/L (135-144)
[2017-08-06] MEDS: D5W-0.45 NACL + KCL 20 MEQ 1,000 ML IV (12:12)
[2017-08-06] MEDS: MAGNESIUM CITRATE 300 ML BTL PO (16:30)
[2017-08-06] MEDS: CASPOFUNGIN 50 MG in SOD CHLORIDE 0.9% 250 ML IVPB (21:44)
[2017-08-07] MEDS: METOCLOPRAMIDE 10 MG INJ IV ×5 (00:18→23:57)
[2017-08-07 03:11] LABS: ADD MAN DIFF? NO
[2017-08-07 03:17] LABS: WHITE BLOOD COUNT 11.5 10^3/ul (4.8-10.8)
[2017-08-07 03:17] LABS: BASOPHILS % 0.3 % (0.0-2.0); EOSINOPHILS # 0.2 10^3/ul (0.0-0.5); EOSINOPHILS % 1.3 % (0.0-7.0); HEMATOCRIT 27.1 % (37.0-47.0); HEMOGLOBIN 8.9 g/dl (12.0-16.0); LYMPHOCYTES # 1.9 10^3/ul (0.8-2.9); LYMPHOCYTES % 16.7 % (15.0-51.0); MEAN CORPUSCULAR HEMOGLOBIN 30.7 pg (29.0-33.0); MEAN CORPUSCULAR HGB CONC 32.8 g/dl (32.0-37.0); MEAN CORPUSCULAR VOLUME 93.4 fl (82.0-101.0); MEAN PLATELET VOLUME 10.3 fl (7.4-10.4); MONOCYTE # 1.2 10^3/ul (0.3-0.9); MONOCYTES % 10.3 % (0.0-11.0); NEUTROPHIL # 8.1 10^3/ul (1.6-7.5); NEUTROPHILS % 70.5 % (39.0-77.0); PLATELET COUNT 271 10^3/UL (140-415); RED CELL DISTRIBUTION WIDTH 14.6 % (11.5-14.5)
[2017-08-07 03:41] LABS: ANION GAP 13 (8-16); BLOOD UREA NITROGEN 3 mg/dl (7-20); CALCIUM 9.2 mg/dl (8.4-10.2); CARBON DIOXIDE 24 mmol/L (21-31); CHLORIDE 108 mmol/L (97-110); CREATININE 0.32 mg/dl (0.44-1.00); GLUCOSE 90 mg/dl (70-220); POTASSIUM 3.3 mmol/L (3.5-5.1); SODIUM 142 mmol/L (135-144)
[2017-08-07] MEDS: VANCOMYCIN 1 GM 250 ML IVPB ×2 (04:27→16:30)
[2017-08-07] MEDS: D5W-0.45 NACL + KCL 20 MEQ 1,000 ML IV ×3 (04:27→21:08)
[2017-08-07] MEDS: metroNIDAZOLE 500 MG/NS (PMX) 100 ML IVPB ×3 (06:12→21:10)
[2017-08-07] MEDS: ERYTHROMYCIN BASE (EC) 250 MG TAB PO ×3 (06:13→21:09)
[2017-08-07] MEDS: CEFEPIME 2GM/50 ML (PMX) 50 ML IVPB ×2 (08:22→21:10)
[2017-08-07] MEDS: FAMOTIDINE 20 MG TAB GTB (08:23)
[2017-08-07] MEDS: ATENOLOL 25 MG TAB PO ×2 (08:23→21:09)
[2017-08-07] MEDS: COLLAGENASE 30 GM TUBE TOP (08:25)
[2017-08-07] MEDS: ENOXAPARIN 30 MG/0.3 ML SYG SC (08:45)
[2017-08-07] MEDS: POTASSIUM CHLORIDE 20 MEQ POWDER FOR ORAL SOLN GTB (16:30)
[2017-08-07] MEDS: CASPOFUNGIN 50 MG in SOD CHLORIDE 0.9% 250 ML IVPB (21:09)
[2017-08-07] MEDS: morphine 2 MG INJ IV (23:58)
[2017-08-08] MEDS: VANCOMYCIN 1 GM 250 ML IVPB ×2 (05:54→17:16)
[2017-08-08] MEDS: METOCLOPRAMIDE 10 MG INJ IV ×3 (05:54→17:17)
[2017-08-08] MEDS: ERYTHROMYCIN BASE (EC) 250 MG TAB PO ×3 (05:54→21:43)
[2017-08-08] MEDS: metroNIDAZOLE 500 MG/NS (PMX) 100 ML IVPB ×3 (05:54→21:43)
[2017-08-08] MEDS: ATENOLOL 25 MG TAB PO ×2 (09:00→21:26)
[2017-08-08] MEDS: D5W-0.45 NACL + KCL 20 MEQ 1,000 ML IV ×3 (09:18→21:27)
[2017-08-08] MEDS: CEFEPIME 2GM/50 ML (PMX) 50 ML IVPB ×2 (09:53→21:25)
[2017-08-08] MEDS: ENOXAPARIN 30 MG/0.3 ML SYG SC (09:57)
[2017-08-08] MEDS: FAMOTIDINE 20 MG TAB GTB (10:07)
[2017-08-08] MEDS: COLLAGENASE 30 GM TUBE TOP (10:09)
[2017-08-08 12:00] LABS: ADD MAN DIFF? NO
[2017-08-08 12:12] LABS: WHITE BLOOD COUNT 12.2 10^3/ul (4.8-10.8)
[2017-08-08 12:12] LABS: BASOPHIL # 0.1 10^3/ul (0.0-0.1); BASOPHILS % 0.4 % (0.0-2.0); EOSINOPHILS % 0.2 % (0.0-7.0); HEMATOCRIT 26.8 % (37.0-47.0); HEMOGLOBIN 9.2 g/dl (12.0-16.0); LYMPHOCYTES # 1.4 10^3/ul (0.8-2.9); LYMPHOCYTES % 11.7 % (15.0-51.0); MEAN CORPUSCULAR HEMOGLOBIN 31.7 pg (29.0-33.0); MEAN CORPUSCULAR HGB CONC 34.3 g/dl (32.0-37.0); MEAN CORPUSCULAR VOLUME 92.4 fl (82.0-101.0); MEAN PLATELET VOLUME 11.1 fl (7.4-10.4); MONOCYTE # 1.1 10^3/ul (0.3-0.9); MONOCYTES % 9.3 % (0.0-11.0); NEUTROPHIL # 9.4 10^3/ul (1.6-7.5); NEUTROPHILS % 77.7 % (39.0-77.0); PLATELET COUNT 292 10^3/UL (140-415); RED CELL DISTRIBUTION WIDTH 14.5 % (11.5-14.5)
[2017-08-08 12:33] LABS: ANION GAP 13 (8-16); BLOOD UREA NITROGEN 2 mg/dl (7-20); CALCIUM 9.1 mg/dl (8.4-10.2); CARBON DIOXIDE 24 mmol/L (21-31); CHLORIDE 106 mmol/L (97-110); GLUCOSE 256 mg/dl (70-220); POTASSIUM 3.8 mmol/L (3.5-5.1); SODIUM 139 mmol/L (135-144)
[2017-08-08] MEDS ORDERED: morphine LIQ (10 MG/5 ML) CUP PO (14:00)
[2017-08-08] MEDS: CASPOFUNGIN 50 MG in SOD CHLORIDE 0.9% 250 ML IVPB (21:26)
[2017-08-09] MEDS: METOCLOPRAMIDE 10 MG INJ IV ×4 (00:13→16:42)
[2017-08-09] MEDS: VANCOMYCIN 1 GM 250 ML IVPB (05:02)
[2017-08-09] MEDS: D5W-0.45 NACL + KCL 20 MEQ 1,000 ML IV ×3 (05:03→21:38)
[2017-08-09] MEDS: metroNIDAZOLE 500 MG/NS (PMX) 100 ML IVPB ×3 (05:03→22:37)
[2017-08-09] MEDS: ERYTHROMYCIN BASE (EC) 250 MG TAB PO ×3 (05:03→21:37)
[2017-08-09 09:10] LABS: ADD MAN DIFF? NO
[2017-08-09 09:14] LABS: WHITE BLOOD COUNT 9.1 10^3/ul (4.8-10.8)
[2017-08-09 09:14] LABS: BASOPHILS % 0.3 % (0.0-2.0); EOSINOPHILS # 0.1 10^3/ul (0.0-0.5); EOSINOPHILS % 1.2 % (0.0-7.0); HEMATOCRIT 26.4 % (37.0-47.0); HEMOGLOBIN 8.7 g/dl (12.0-16.0); LYMPHOCYTES % 21.6 % (15.0-51.0); MEAN CORPUSCULAR HEMOGLOBIN 30.7 pg (29.0-33.0); MEAN CORPUSCULAR VOLUME 93.3 fl (82.0-101.0); MEAN PLATELET VOLUME 10.6 fl (7.4-10.4); MONOCYTE # 1.1 10^3/ul (0.3-0.9); NEUTROPHIL # 5.8 10^3/ul (1.6-7.5); NEUTROPHILS % 64.2 % (39.0-77.0); PLATELET COUNT 292 10^3/UL (140-415); RED BLOOD COUNT 2.83 10^6/ul (4.20-5.40); RED CELL DISTRIBUTION WIDTH 14.7 % (11.5-14.5)
[2017-08-09] MEDS: CEFEPIME 2GM/50 ML (PMX) 50 ML IVPB ×2 (09:26→21:37)
[2017-08-09] MEDS: FAMOTIDINE 20 MG TAB GTB (09:26)
[2017-08-09] MEDS: ATENOLOL 25 MG TAB PO ×2 (09:26→21:37)
[2017-08-09 09:35] LABS: ALANINE AMINOTRANSFERASE 43 IU/L (13-69); ALBUMIN 3.1 g/dl (3.3-4.9); ALKALINE PHOSPHATASE 80 IU/L (42-121); ANION GAP 12 (8-16); ASPARTATE AMINO TRANSFERASE 27 IU/L (15-46); BLOOD UREA NITROGEN 2 mg/dl (7-20); CALCIUM 9.1 mg/dl (8.4-10.2); CARBON DIOXIDE 25 mmol/L (21-31); CHLORIDE 107 mmol/L (97-110); CREATININE 0.35 mg/dl (0.44-1.00); GLUCOSE 111 mg/dl (70-220); SODIUM 141 mmol/L (135-144); TOTAL PROTEIN 5.9 g/dl (6.1-8.1)
[2017-08-09] MEDS: COLLAGENASE 30 GM TUBE TOP (09:56)
[2017-08-09] MEDS: ENOXAPARIN 30 MG/0.3 ML SYG SC (09:56)
[2017-08-09 10:02] LABS: POTASSIUM 2.8 mmol/L (3.5-5.1)
[2017-08-09] MEDS: morphine LIQ (10 MG/5 ML) CUP GTB (11:19)
[2017-08-09] MEDS: ONDANSETRON 4 MG INJ IV (11:36)
[2017-08-09] MEDS: POTASSIUM CHLORIDE 50 ML IVPB ×6 (12:14→21:38)
[2017-08-09 16:18] LABS: VANCOMYCIN,TROUGH 19.1 ug/ml (10.0-20.0)
[2017-08-09] MEDS: METOPROLOL 5 MG INJ IV (16:43)
[2017-08-09] MEDS: CASPOFUNGIN 50 MG in SOD CHLORIDE 0.9% 250 ML IVPB (21:38)
[2017-08-09] MEDS: SOD CHLORIDE 0.45% IVPB (22:37)
[2017-08-09] MEDS: VANCOMYCIN IVPB (22:37)
[2017-08-10] MEDS: METOCLOPRAMIDE 10 MG INJ IV ×4 (00:26→17:16)
[2017-08-10] MEDS: morphine LIQ (10 MG/5 ML) CUP GTB ×3 (01:44→20:35)
[2017-08-10] MEDS: VANCOMYCIN IVPB ×2 (05:20→14:17)
[2017-08-10] MEDS: SOD CHLORIDE 0.45% IVPB ×2 (05:20→14:17)
[2017-08-10] MEDS: ERYTHROMYCIN BASE (EC) 250 MG TAB PO ×3 (05:21→22:33)
[2017-08-10] MEDS: metroNIDAZOLE 500 MG/NS (PMX) 100 ML IVPB ×3 (05:21→22:34)
[2017-08-10 06:19] LABS: ADD MAN DIFF? NO
[2017-08-10 06:28] LABS: ABNORMAL IP MESSAGE 1; BASOPHIL # 0.1 10^3/ul (0.0-0.1); BASOPHILS % 0.5 % (0.0-2.0); EOSINOPHILS # 0.4 10^3/ul (0.0-0.5); EOSINOPHILS % 3.7 % (0.0-7.0); HEMATOCRIT 31.5 % (37.0-47.0); HEMOGLOBIN 10.6 g/dl (12.0-16.0); LYMPHOCYTES # 2.4 10^3/ul (0.8-2.9); LYMPHOCYTES % 21.6 % (15.0-51.0); MEAN CORPUSCULAR HEMOGLOBIN 31.1 pg (29.0-33.0); MEAN CORPUSCULAR HGB CONC 33.7 g/dl (32.0-37.0); MEAN CORPUSCULAR VOLUME 92.4 fl (82.0-101.0); MEAN PLATELET VOLUME 10.7 fl (7.4-10.4); MONOCYTE # 1.4 10^3/ul (0.3-0.9); MONOCYTES % 13.1 % (0.0-11.0); NEUTROPHIL # 6.6 10^3/ul (1.6-7.5); NEUTROPHILS % 60.5 % (39.0-77.0); PLATELET COUNT 343 10^3/UL (140-415); RED BLOOD COUNT 3.41 10^6/ul (4.20-5.40); RED CELL DISTRIBUTION WIDTH 14.6 % (11.5-14.5)
[2017-08-10 06:28] LABS: WHITE BLOOD COUNT 10.9 10^3/ul (4.8-10.8)
[2017-08-10 06:45] LABS: POSITIVE DIFF @See below
[2017-08-10 07:02] LABS: ANION GAP 14 (8-16); BLOOD UREA NITROGEN 2 mg/dl (7-20); CALCIUM 9.8 mg/dl (8.4-10.2); CARBON DIOXIDE 27 mmol/L (21-31); CHLORIDE 103 mmol/L (97-110); CREATININE 0.36 mg/dl (0.44-1.00); GLUCOSE 113 mg/dl (70-220); POTASSIUM 3.9 mmol/L (3.5-5.1); SODIUM 140 mmol/L (135-144)
[2017-08-10 07:06] LABS: ANION GAP 15 (8-16); BLOOD UREA NITROGEN 2 mg/dl (7-20); CALCIUM 9.8 mg/dl (8.4-10.2); CARBON DIOXIDE 26 mmol/L (21-31); CHLORIDE 103 mmol/L (97-110); CREATININE 0.33 mg/dl (0.44-1.00); GLUCOSE 108 mg/dl (70-220); MAGNESIUM 1.3 mg/dl (1.7-2.5); POTASSIUM 4.2 mmol/L (3.5-5.1); SODIUM 140 mmol/L (135-144)
[2017-08-10] MEDS: ATENOLOL 25 MG TAB PO ×2 (08:56→20:35)
[2017-08-10] MEDS: D5W-0.45 NACL + KCL 20 MEQ 1,000 ML IV (09:03)
[2017-08-10] MEDS: FAMOTIDINE 20 MG TAB GTB (09:03)
[2017-08-10] MEDS: CEFEPIME 2GM/50 ML (PMX) 50 ML IVPB ×2 (09:03→20:43)
[2017-08-10] MEDS: COLLAGENASE 30 GM TUBE TOP (09:04)
[2017-08-10] MEDS: ENOXAPARIN 30 MG/0.3 ML SYG SC (09:23)
[2017-08-10] MEDS: CASPOFUNGIN 50 MG in SOD CHLORIDE 0.9% 250 ML IVPB (20:44)
[2017-08-11] MEDS: METOCLOPRAMIDE 10 MG INJ IV ×4 (00:36→18:16)
[2017-08-11] MEDS: D5W-0.45 NACL + KCL 20 MEQ 1,000 ML IV ×2 (00:37→12:22)
[2017-08-11] MEDS: SOD CHLORIDE 0.45% IVPB ×2 (02:40→14:30)
[2017-08-11] MEDS: VANCOMYCIN IVPB ×2 (02:40→14:30)
[2017-08-11] MEDS: morphine LIQ (10 MG/5 ML) CUP GTB (02:53)
[2017-08-11] MEDS: metroNIDAZOLE 500 MG/NS (PMX) 100 ML IVPB ×3 (05:30→22:36)
[2017-08-11] MEDS: ERYTHROMYCIN BASE (EC) 250 MG TAB PO ×3 (05:31→22:34)
[2017-08-11 06:40] LABS: ADD MAN DIFF? NO
[2017-08-11 06:46] LABS: ABNORMAL IP MESSAGE 1; BASOPHILS % 0.4 % (0.0-2.0); EOSINOPHILS # 0.4 10^3/ul (0.0-0.5); EOSINOPHILS % 4.1 % (0.0-7.0); HEMATOCRIT 27.4 % (37.0-47.0); HEMOGLOBIN 9.2 g/dl (12.0-16.0); LYMPHOCYTES # 1.8 10^3/ul (0.8-2.9); LYMPHOCYTES % 19.5 % (15.0-51.0); MEAN CORPUSCULAR HEMOGLOBIN 30.9 pg (29.0-33.0); MEAN CORPUSCULAR HGB CONC 33.6 g/dl (32.0-37.0); MEAN CORPUSCULAR VOLUME 91.9 fl (82.0-101.0); MEAN PLATELET VOLUME 10.4 fl (7.4-10.4); MONOCYTE # 1.2 10^3/ul (0.3-0.9); MONOCYTES % 12.7 % (0.0-11.0); NEUTROPHIL # 5.7 10^3/ul (1.6-7.5); NEUTROPHILS % 62.4 % (39.0-77.0); PLATELET COUNT 300 10^3/UL (140-415); RED BLOOD COUNT 2.98 10^6/ul (4.20-5.40); RED CELL DISTRIBUTION WIDTH 14.6 % (11.5-14.5)
[2017-08-11 06:46] LABS: WHITE BLOOD COUNT 9.2 10^3/ul (4.8-10.8)
[2017-08-11 06:57] LABS: POSITIVE DIFF @See below
[2017-08-11 07:00] LABS: ANION GAP 13 (8-16); BLOOD UREA NITROGEN 3 mg/dl (7-20); CALCIUM 9.1 mg/dl (8.4-10.2); CARBON DIOXIDE 29 mmol/L (21-31); CHLORIDE 101 mmol/L (97-110); CREATININE 0.36 mg/dl (0.44-1.00); GLUCOSE 101 mg/dl (70-220); POTASSIUM 3.5 mmol/L (3.5-5.1); SODIUM 139 mmol/L (135-144)
[2017-08-11] MEDS: CEFEPIME 2GM/50 ML (PMX) 50 ML IVPB ×2 (09:23→22:36)
[2017-08-11] MEDS: COLLAGENASE 30 GM TUBE TOP (09:41)
[2017-08-11] MEDS: FAMOTIDINE 20 MG TAB GTB (09:41)
[2017-08-11] MEDS: ENOXAPARIN 30 MG/0.3 ML SYG SC (09:51)
[2017-08-11] MEDS: ATENOLOL 25 MG TAB PO ×2 (09:51→22:35)
[2017-08-11] MEDS: CASPOFUNGIN 50 MG in SOD CHLORIDE 0.9% 250 ML IVPB (22:35)
[2017-08-12] MEDS: D5W-0.45 NACL + KCL 20 MEQ 1,000 ML IV ×2 (01:44→13:41)
[2017-08-12] MEDS: VANCOMYCIN IVPB ×2 (03:24→14:30)
[2017-08-12] MEDS: SOD CHLORIDE 0.45% IVPB ×2 (03:24→14:30)
[2017-08-12] MEDS: metroNIDAZOLE 500 MG/NS (PMX) 100 ML IVPB ×3 (06:11→21:24)
[2017-08-12] MEDS: METOCLOPRAMIDE 10 MG INJ IV ×4 (06:11→18:16)
[2017-08-12] MEDS: ERYTHROMYCIN BASE (EC) 250 MG TAB PO ×3 (06:11→21:32)
[2017-08-12] MEDS: morphine LIQ (10 MG/5 ML) CUP GTB (06:50)
[2017-08-12 07:08] LABS: ADD MAN DIFF? NO
[2017-08-12 07:12] LABS: BASOPHILS % 0.4 % (0.0-2.0); EOSINOPHILS # 0.2 10^3/ul (0.0-0.5); EOSINOPHILS % 1.7 % (0.0-7.0); HEMATOCRIT 29.4 % (37.0-47.0); HEMOGLOBIN 9.7 g/dl (12.0-16.0); LYMPHOCYTES # 1.9 10^3/ul (0.8-2.9); LYMPHOCYTES % 20.6 % (15.0-51.0); MEAN CORPUSCULAR HEMOGLOBIN 30.8 pg (29.0-33.0); MEAN CORPUSCULAR VOLUME 93.3 fl (82.0-101.0); MEAN PLATELET VOLUME 10.4 fl (7.4-10.4); MONOCYTE # 1.4 10^3/ul (0.3-0.9); MONOCYTES % 14.7 % (0.0-11.0); NEUTROPHIL # 5.8 10^3/ul (1.6-7.5); NEUTROPHILS % 61.7 % (39.0-77.0); PLATELET COUNT 314 10^3/UL (140-415); RED BLOOD COUNT 3.15 10^6/ul (4.20-5.40); RED CELL DISTRIBUTION WIDTH 14.6 % (11.5-14.5)
[2017-08-12 07:12] LABS: WHITE BLOOD COUNT 9.4 10^3/ul (4.8-10.8)
[2017-08-12 07:32] LABS: ANION GAP 12 (8-16); BLOOD UREA NITROGEN 6 mg/dl (7-20); CALCIUM 9.2 mg/dl (8.4-10.2); CARBON DIOXIDE 30 mmol/L (21-31); CHLORIDE 103 mmol/L (97-110); GLUCOSE 107 mg/dl (70-220); POTASSIUM 3.8 mmol/L (3.5-5.1); SODIUM 141 mmol/L (135-144)
[2017-08-12] MEDS: ENOXAPARIN 30 MG/0.3 ML SYG SC (09:00)
[2017-08-12] MEDS: COLLAGENASE 30 GM TUBE TOP (09:00)
[2017-08-12] MEDS: CEFEPIME 2GM/50 ML (PMX) 50 ML IVPB ×2 (10:49→20:50)
[2017-08-12] MEDS: FAMOTIDINE 20 MG TAB GTB (10:49)
[2017-08-12] MEDS: ATENOLOL 25 MG TAB PO ×2 (10:50→20:50)
[2017-08-12] MEDS ORDERED: POLYETHYLENE GLYCOL 17 GM PACKET GTB (12:00)
[2017-08-12] MEDS ORDERED: DOCUSATE SODIUM 10 MG/ML (10ML CUP) GTB (12:00)
[2017-08-12] MEDS: CASPOFUNGIN 50 MG in SOD CHLORIDE 0.9% 250 ML IVPB (20:50)
[2017-08-13] MEDS: METOCLOPRAMIDE 10 MG INJ IV ×5 (00:30→23:56)
[2017-08-13] MEDS: D5W-0.45 NACL + KCL 20 MEQ 1,000 ML IV ×2 (01:02→12:18)
[2017-08-13] MEDS: SOD CHLORIDE 0.45% IVPB ×2 (01:54→15:17)
[2017-08-13] MEDS: VANCOMYCIN IVPB ×2 (01:54→15:17)
[2017-08-13] MEDS: morphine LIQ (10 MG/5 ML) CUP GTB (02:05)
[2017-08-13 02:46] LABS: VANCOMYCIN,TROUGH 16.5 ug/ml (10.0-20.0)
[2017-08-13] MEDS: ERYTHROMYCIN BASE (EC) 250 MG TAB PO ×3 (05:56→21:00)
[2017-08-13] MEDS: metroNIDAZOLE 500 MG/NS (PMX) 100 ML IVPB ×3 (05:57→21:00)
[2017-08-13 06:19] LABS: ADD MAN DIFF? NO
[2017-08-13 06:26] LABS: BASOPHILS % 0.4 % (0.0-2.0); EOSINOPHILS # 0.2 10^3/ul (0.0-0.5); EOSINOPHILS % 2.2 % (0.0-7.0); HEMATOCRIT 27.8 % (37.0-47.0); HEMOGLOBIN 9.1 g/dl (12.0-16.0); LYMPHOCYTES # 1.9 10^3/ul (0.8-2.9); LYMPHOCYTES % 20.2 % (15.0-51.0); MEAN CORPUSCULAR HGB CONC 32.7 g/dl (32.0-37.0); MEAN CORPUSCULAR VOLUME 94.6 fl (82.0-101.0); MEAN PLATELET VOLUME 10.5 fl (7.4-10.4); MONOCYTE # 1.3 10^3/ul (0.3-0.9); MONOCYTES % 13.8 % (0.0-11.0); NEUTROPHIL # 5.9 10^3/ul (1.6-7.5); NEUTROPHILS % 62.3 % (39.0-77.0); PLATELET COUNT 297 10^3/UL (140-415); RED BLOOD COUNT 2.94 10^6/ul (4.20-5.40); RED CELL DISTRIBUTION WIDTH 14.7 % (11.5-14.5)
[2017-08-13 06:26] LABS: WHITE BLOOD COUNT 9.5 10^3/ul (4.8-10.8)
[2017-08-13 06:31] LABS: POSITIVE DIFF @See below
[2017-08-13 06:54] LABS: ALANINE AMINOTRANSFERASE 43 IU/L (13-69); ALBUMIN 3.1 g/dl (3.3-4.9); ALBUMIN/GLOBULIN RATIO 0.96; ALKALINE PHOSPHATASE 78 IU/L (42-121); ANION GAP 12 (8-16); ASPARTATE AMINO TRANSFERASE 43 IU/L (15-46); BLOOD UREA NITROGEN 9 mg/dl (7-20); CARBON DIOXIDE 30 mmol/L (21-31); CHLORIDE 103 mmol/L (97-110); CREATININE 0.34 mg/dl (0.44-1.00); GLUCOSE 100 mg/dl (70-220); SODIUM 141 mmol/L (135-144); TOTAL PROTEIN 6.3 g/dl (6.1-8.1)
[2017-08-13 07:31] LABS: CALCIUM 9.2 mg/dl (8.4-10.2)
[2017-08-13] MEDS: ATENOLOL 25 MG TAB PO ×2 (09:00→20:54)
[2017-08-13] MEDS: CEFEPIME 2GM/50 ML (PMX) 50 ML IVPB ×2 (09:29→20:54)
[2017-08-13] MEDS: FAMOTIDINE 20 MG TAB GTB (09:29)
[2017-08-13] MEDS: COLLAGENASE 30 GM TUBE TOP (09:30)
[2017-08-13] MEDS: ENOXAPARIN 30 MG/0.3 ML SYG SC (09:34)
[2017-08-13] MEDS ORDERED: LORAZEPAM 2 MG INJ IV (14:12)
[2017-08-13] MEDS: CASPOFUNGIN 50 MG in SOD CHLORIDE 0.9% 250 ML IVPB (20:54)
[2017-08-14] MEDS: SOD CHLORIDE 0.9% 1,000 ML IV (00:21)
[2017-08-14] MEDS: VANCOMYCIN IVPB ×3 (02:22→17:18)
[2017-08-14] MEDS: SOD CHLORIDE 0.45% IVPB ×3 (02:22→17:18)
[2017-08-14] MEDS: D5W-0.45 NACL + KCL 20 MEQ 1,000 ML IV ×2 (02:48→17:30)
[2017-08-14] MEDS: METOCLOPRAMIDE 10 MG INJ IV ×3 (06:10→18:35)
[2017-08-14] MEDS: metroNIDAZOLE 500 MG/NS (PMX) 100 ML IVPB ×3 (06:10→23:10)
[2017-08-14] MEDS: morphine LIQ (10 MG/5 ML) CUP GTB (06:37)
[2017-08-14 08:38] LABS: ADD MAN DIFF? NO
[2017-08-14 08:49] LABS: ABNORMAL IP MESSAGE 1; BASOPHIL # 0.1 10^3/ul (0.0-0.1); BASOPHILS % 0.6 % (0.0-2.0); EOSINOPHILS # 0.4 10^3/ul (0.0-0.5); EOSINOPHILS % 4.4 % (0.0-7.0); HEMATOCRIT 27.9 % (37.0-47.0); HEMOGLOBIN 9.1 g/dl (12.0-16.0); LYMPHOCYTES # 1.5 10^3/ul (0.8-2.9); LYMPHOCYTES % 17.7 % (15.0-51.0); MEAN CORPUSCULAR HEMOGLOBIN 31.1 pg (29.0-33.0); MEAN CORPUSCULAR HGB CONC 32.6 g/dl (32.0-37.0); MEAN CORPUSCULAR VOLUME 95.2 fl (82.0-101.0); MEAN PLATELET VOLUME 10.7 fl (7.4-10.4); MONOCYTE # 0.9 10^3/ul (0.3-0.9); MONOCYTES % 10.8 % (0.0-11.0); NEUTROPHIL # 5.7 10^3/ul (1.6-7.5); NEUTROPHILS % 65.2 % (39.0-77.0); PLATELET COUNT 297 10^3/UL (140-415); RED BLOOD COUNT 2.93 10^6/ul (4.20-5.40); RED CELL DISTRIBUTION WIDTH 14.6 % (11.5-14.5)
[2017-08-14 08:49] LABS: WHITE BLOOD COUNT 8.7 10^3/ul (4.8-10.8)
[2017-08-14] MEDS: FAMOTIDINE 20 MG TAB GTB (08:49)
[2017-08-14] MEDS: CEFEPIME 2GM/50 ML (PMX) 50 ML IVPB ×2 (08:50→20:58)
[2017-08-14] MEDS: ENOXAPARIN 30 MG/0.3 ML SYG SC (08:56)
[2017-08-14 09:13] LABS: ANION GAP 11 (8-16); BLOOD UREA NITROGEN 9 mg/dl (7-20); CALCIUM 9.3 mg/dl (8.4-10.2); CARBON DIOXIDE 29 mmol/L (21-31); CHLORIDE 103 mmol/L (97-110); CREATININE 0.32 mg/dl (0.44-1.00); GLUCOSE 203 mg/dl (70-220); POTASSIUM 4.3 mmol/L (3.5-5.1); SODIUM 139 mmol/L (135-144)
[2017-08-14] MEDS: ERYTHROMYCIN BASE (EC) 250 MG TAB PO ×3 (11:57→22:00)
[2017-08-14] MEDS: COLLAGENASE 30 GM TUBE TOP (11:59)
[2017-08-14] MEDS: BARIUM SULFATE 135 ML (E-Z HD) PO (12:26)
[2017-08-14] MEDS: SOD CHLORIDE 0.9% 100 ML (13:06)
[2017-08-14] MEDS: IOHEXOL 300MG/ML 150 ML BTL (13:06)
[2017-08-14] MEDS: CASPOFUNGIN 50 MG in SOD CHLORIDE 0.9% 250 ML IVPB (21:58)
== END 2017-08-14 23:40 | DRG 870 ==
LOC: ICU 20:27 → TEL 07-12 18:03
PROC: 5A1955Z Respiratory Ventilation, Greater than 96 Consecutive Hours (ICD-10-PCS; 2017-07-10)
PROC: 30233N1 Transfusion of Nonautologous Red Blood Cells into Peripheral Vein, Percutaneous Approach (ICD-10-PCS; 2017-07-14)
PROC: 02HV33Z Insertion of Infusion Device into Superior Vena Cava, Percutaneous Approach (ICD-10-PCS; principal; 2017-07-18)
DX: A41.9 Sepsis, unspecified organism (principal); J96.21 Acute and chronic respiratory failure with hypoxia; R65.21 Severe sepsis with septic shock; G06.0 Intracranial abscess and granuloma; G82.50 Quadriplegia, unspecified; L89.123 Pressure ulcer of left upper back, stage 3; J18.9 Pneumonia, unspecified organism; K56.600 Partial intestinal obstruction, unspecified as to cause; L89.893 Pressure ulcer of other site, stage 3; K56.7 Ileus, unspecified; Z93.0 Tracheostomy status; D64.9 Anemia, unspecified; F41.9 Anxiety disorder, unspecified; E87.6 Hypokalemia; R33.9 Retention of urine, unspecified; Z93.1 Gastrostomy status; Z87.820 Personal history of traumatic brain injury; Y95 Nosocomial condition
CPT/HCPCS: 36430; 36569; 36600; 70470; 71010; 71045; 71250; 73010; 73030-RT; 74000; 74018; 74176; 74230; 74250; 76775; 76937; 80048; 80053; 80202; 81001; 82803; 83605; 83735; 84145; 85025; 86850; 86900; 86901; 86920; 87040; 87070; 87081; 87086; 87400; 89220; 92526; 92610; 92611; 93005; 94002; 94003; 94799; 97110; 97162; 97530; 97535